=== PATIENT | male | born 1950 | race Caucasian/White ===

== ENCOUNTER → 2017-11-11 | Outpatient (CLI) | payer OTHER ==
[~2017-11-11] MED LIST: AMLO10 PO; ASPI81CH PO; ATOR40TA PO; CLOP75 PO; Coumadin4 MG PO; GABA600 PO; GLIP5ER PO; HYDR1TAB94 PO; INSDET100; LISI20 PO; METF850 PO; MUPI1NAS; OXYC1TAB11 PO; TRAZ50 PO; Z PACK
== END ==
LOC: LAB SRC 14:55 → LAB SHORT 14:55
DX: G89.4 Chronic pain syndrome (principal); Z79.899 Other long term (current) drug therapy
CPT/HCPCS: G0480

== ENCOUNTER 2018-08-20 10:45 | Emergency (ER) | payer OTHER ==
[~2018-08-20] VITALS: Ht 185.4 cm; Wt 111.1 kg
[2018-08-20 11:28] LABS: BASOPHILS ABSOLUTE AUTO 0.04 K/mm3 (0.00-0.23); BASOPHILS PERCENT AUTO 0 % (0-2); EOSINOPHILS ABSOLUTE AUTO 0.13 K/mm3 (0.00-0.68); EOSINOPHILS PERCENT AUTO 1 % (0-6); Hematocrit 44.7 % (37.0-53.0); Hemoglobin 14.9 g/dL (13.5-17.5); IMMATURE GRAN ABSOLUTE AUTO 0.04 K/mm3 (0.00-0.10); IMMATURE GRAN PERCENT AUTO 0 % (0-1); LYMPHOCYTES ABSOLUTE AUTO 1.02 K/mm3 (0.84-5.20); LYMPHOCYTES PERCENT AUTO 11 % (21-46); MONOCYTES ABSOLUTE AUTO 0.66 K/mm3 (0.16-1.47); MONOCYTES PERCENT AUTO 7 % (4-13); Mean Corpuscular HGB 31.8 pg (26.0-34.0); Mean Corpuscular HGB Conc 33.3 g/dL (31.5-36.5); Mean Corpuscular Volume 95 fL (80-100); NEUTROPHILS ABSOLUTE AUTO 7.32 K/mm3 (1.96-9.15); NEUTROPHILS PERCENT AUTO 80 % (41-73); Platelet Count 59 K/mm3 (150-400); RDW Coefficient Variation 12.1 % (11.7-14.2); RDW Standard Deviation 42.1 fL (35.1-46.3); Red Blood Cell Count 4.69 M/mm3 (4.30-5.90); White Blood Cell Count 9.21 K/mm3 (4.00-11.30)
[2018-08-20 11:48] LABS: Alanine Aminotransfer (ALT/SGP 37 U/L (12-78); Albumin, Blood 3.5 g/dL (3.4-5.0); Albumin/Globulin Ratio 1.1 (0.8-1.8); Alk Phos 65 U/L (50-136); Anion Gap 7 mmol/L (6-16); Aspartate Aminotrans (AST/SGOT 24 U/L (12-37); Bilirubin, Total 0.6 mg/dL (0.1-1.0); Blood Urea Nitrogen 18 mg/dL (8-24); Bun/Creatinine Ratio 22.8 (12.0-20.0); CO2, Blood 26 mmol/L (21-32); Calcium, Blood 8.7 mg/dL (8.5-10.1); Chloride, Blood 106 mmol/L (98-108); Creatinine, Blood 0.79 mg/dL (0.60-1.20); Globulin, Blood 3.3 g/dL (2.2-4.0); Glomerular Filtration Rate >60 (60-); Glucose, Blood 288 mg/dL (70-99); Potassium, Blood 4.3 mmol/L (3.5-5.5); Sodium, Blood 139 mmol/L (136-145); Total Protein, Blood 6.8 g/dL (6.4-8.2); Troponin I 0.022 ng/mL (0.000-0.040)
== END 2018-08-20 11:43 | disposition left against medical advice (07) ==
LOC: ER 10:45
PROVIDERS: Emergency Medicine
DX: R07.9 Chest pain, unspecified (principal); E11.40 Type 2 diabetes mellitus with diabetic neuropathy, unspecified; I10 Essential (primary) hypertension; E78.5 Hyperlipidemia, unspecified; Z79.899 Other long term (current) drug therapy; Z79.84 Long term (current) use of oral hypoglycemic drugs; Z79.82 Long term (current) use of aspirin; Z87.891 Personal history of nicotine dependence
CPT/HCPCS: 71046; 80053; 84484; 85025; 93005; 93010; 99285-25

== ENCOUNTER 2019-02-01 09:45 | Inpatient (IN) | payer OTHER ==
[~2019-02-01] VITALS: Ht 185.4 cm; Wt 111.6 kg
[~2019-02-01 09:45] MED LIST changes: -ASPI81CH PO; +Aspirin EC81 MG PO; -GLIP5ER PO; -LISI20 PO; -METF850 PO
[2019-02-01 10:06] LABS: BASOPHILS ABSOLUTE AUTO 0.03 K/mm3 (0.00-0.23); BASOPHILS PERCENT AUTO 0 % (0-2); EOSINOPHILS ABSOLUTE AUTO 0.02 K/mm3 (0.00-0.68); EOSINOPHILS PERCENT AUTO 0 % (0-6); Hematocrit 42.4 % (37.0-53.0); Hemoglobin 14.7 g/dL (13.5-17.5); IMMATURE GRAN ABSOLUTE AUTO 0.11 K/mm3 (0.00-0.10); IMMATURE GRAN PERCENT AUTO 1 % (0-1); LYMPHOCYTES ABSOLUTE AUTO 2.15 K/mm3 (0.84-5.20); LYMPHOCYTES PERCENT AUTO 10 % (21-46); MONOCYTES ABSOLUTE AUTO 1.51 K/mm3 (0.16-1.47); MONOCYTES PERCENT AUTO 7 % (4-13); Mean Corpuscular HGB 32.9 pg (26.0-34.0); Mean Corpuscular HGB Conc 34.7 g/dL (31.5-36.5); Mean Corpuscular Volume 95 fL (80-100); NEUTROPHILS ABSOLUTE AUTO 18.45 K/mm3 (1.96-9.15); NEUTROPHILS PERCENT AUTO 83 % (41-73); RDW Coefficient Variation 12.1 % (11.7-14.2); RDW Standard Deviation 42.4 fL (35.1-46.3); Red Blood Cell Count 4.47 M/mm3 (4.30-5.90); White Blood Cell Count 22.27 K/mm3 (4.00-11.30)
[2019-02-01 10:12] LABS: Mean Platelet Volume 14.2 fL (9.1-12.4); Platelet Count 50 K/mm3 (150-400)
[2019-02-01] MEDS ORDERED: ONE DAILY FOR1 EAC1 PO (10:12)
[2019-02-01 10:23] LABS: International Normalized Ratio 1.01; Prothrombin Time Results 10.7 Sec (9.7-11.5)
[2019-02-01 10:25] LABS: Alanine Aminotransfer (ALT/SGP 62 U/L (12-78); Albumin, Blood 3.1 g/dL (3.4-5.0); Albumin/Globulin Ratio 0.7 (0.8-1.8); Alk Phos 89 U/L (50-136); Anion Gap 8 mmol/L (6-16); Aspartate Aminotrans (AST/SGOT 56 U/L (12-37); Bilirubin, Total 0.7 mg/dL (0.1-1.0); Blood Urea Nitrogen 55 mg/dL (8-24); Bun/Creatinine Ratio 45.5 (12.0-20.0); CO2, Blood 28 mmol/L (21-32); Calcium, Blood 9.1 mg/dL (8.5-10.1); Chloride, Blood 103 mmol/L (98-108); Creatinine, Blood 1.21 mg/dL (0.60-1.20); Globulin, Blood 4.2 g/dL (2.2-4.0); Glomerular Filtration Rate >60 (60-); Glucose, Blood 277 mg/dL (70-99); Potassium, Blood 4.1 mmol/L (3.5-5.5); Sodium, Blood 139 mmol/L (136-145); Total Protein, Blood 7.3 g/dL (6.4-8.2)
[2019-02-01] MEDS ORDERED: GLIP5ER PO (12:03)
[2019-02-01] MEDS ORDERED: METF500 PO (12:09)
[2019-02-01] MEDS ORDERED: HYDCHL25 PO (12:10)
[2019-02-01] MEDS ORDERED: LISI20 PO (12:10)
[2019-02-01] MEDS ORDERED: Norco 10-325 T1 EACH PO (14:30)
[2019-02-01] MEDS ORDERED: MELO7.5 PO (14:30)
--- NOTE | 2019-02-01 17:00 | NUR ---
Initial Visit: Pt admitted with CVA. He is tracking with his eyes, it appears. Pt has just arrived to 3rd floor. [facility] center here to run tests. Confirmed code status with . Pt has an advance directive that states that he would not want any life sustaining treatments, and states so very plainly. , Argenis, states that she is wanting him to remain a full code at this time. Also inquired about the pt's signature page on his document, as it is not included with his paperwork. She states that she has no idea about this and the document is likely in storage. She is spending the night here at the hospital with the pt. Will remain availalble. Advance directed printed and placed in chart.
--- NOTE | 2019-02-01 19:22 | NUR ---
SHIFT SUMMARY: PATIENT ADMIT FROM ED THIS SHIFT. POSSIBLE ACUTE CVA; L SIDE DEFICITS; PT ON BEDREST; NEURO CHECKS Q4 HOURS FOR 24 HOURS. LUNGS COARSE; POSSIBLE PNA; IV ABX. PT NPO UNTIL SWALLOW EVAL. PT & OT EVAL & TREAT ORDERED. TELE IN PLACE; SR @ 83 PER NON MORSE INTERCEPT TECHNICIAN. WCTM.
[2019-02-01 19:49] LABS: Source, Urine Clean Catch
[2019-02-01 19:57] LABS: Bilirubin, Urine Neg (Neg); Blood, Urine 1+ (Neg); Glucose Qualitative, Urine Neg (Neg); Ketones, Urine Neg (Neg); Leukocyte Esterase, Urine Neg (Neg); Nitrite, Urine Neg (Neg); Protein, Urine 3+ (Neg); Urobilinogen, Urine NORM (Normal)
[2019-02-01 20:01] LABS: Appearance, Urine Clear (Clear); Color, Urine Yellow (P-Yellow)
[2019-02-01 20:02] LABS: Amorphous Light (0-Heavy); Bacteria Few /hpf; Red Blood Cells, Urine 0-2 /hpf (0-2); Squamous Epithelial Cells Rare /hpf (Few); White Blood Cells, Urine 0-2 /hpf (0-5)
[2019-02-01 21:14] LABS: Adenovirus Not Detected (NOT DETECT); Bordetella pertussis Not Detected (NOT DETECT); Chlamydophila pneumoniae Not Detected (NOT DETECT); Coronavirus 229E Not Detected (NOT DETECT); Coronavirus HKU1 Not Detected (NOT DETECT); Coronavirus NL63 Not Detected (NOT DETECT); Coronavirus OC43 Not Detected (NOT DETECT); Human Metapneumovirus Not Detected (NOT DETECT); Human Rhinovirus/Enterovirus Not Detected (NOT DETECT); Influenza A Not Detected (NOT DETECT); Influenza A/2009-H1 Not Detected (NOT DETECT); Influenza A/H1 Not Detected (NOT DETECT); Influenza A/H3 Not Detected (NOT DETECT); Influenza B Not Detected (NOT DETECT); Mycoplasma pneumoniae Not Detected (NOT DETECT); Parainfluenza Virus 1 Not Detected (NOT DETECT); Parainfluenza Virus 2 Not Detected (NOT DETECT); Parainfluenza Virus 3 Not Detected (NOT DETECT); Parainfluenza Virus 4 Not Detected (NOT DETECT); Respiratory Syncytial Virus Not Detected (NOT DETECT)
[2019-02-02 05:24] LABS: BASOPHILS ABSOLUTE AUTO 0.02 K/mm3 (0.00-0.23); BASOPHILS PERCENT AUTO 0 % (0-2); EOSINOPHILS ABSOLUTE AUTO 0.02 K/mm3 (0.00-0.68); EOSINOPHILS PERCENT AUTO 0 % (0-6); Hematocrit 44.3 % (37.0-53.0); Hemoglobin 14.9 g/dL (13.5-17.5); IMMATURE GRAN ABSOLUTE AUTO 0.06 K/mm3 (0.00-0.10); IMMATURE GRAN PERCENT AUTO 0 % (0-1); LYMPHOCYTES ABSOLUTE AUTO 1.88 K/mm3 (0.84-5.20); LYMPHOCYTES PERCENT AUTO 10 % (21-46); MONOCYTES ABSOLUTE AUTO 1.48 K/mm3 (0.16-1.47); MONOCYTES PERCENT AUTO 8 % (4-13); Mean Corpuscular HGB 32.2 pg (26.0-34.0); Mean Corpuscular HGB Conc 33.6 g/dL (31.5-36.5); Mean Corpuscular Volume 96 fL (80-100); NEUTROPHILS ABSOLUTE AUTO 15.54 K/mm3 (1.96-9.15); NEUTROPHILS PERCENT AUTO 82 % (41-73); Platelet Count 56 K/mm3 (150-400); RDW Standard Deviation 42.1 fL (35.1-46.3); Red Blood Cell Count 4.63 M/mm3 (4.30-5.90)
[2019-02-02 05:26] LABS: Mean Platelet Volume 14.1 fL (9.1-12.4)
[2019-02-02 05:40] LABS: Alanine Aminotransfer (ALT/SGP 56 U/L (12-78); Albumin/Globulin Ratio 0.7 (0.8-1.8); Alk Phos 92 U/L (50-136); Anion Gap 8 mmol/L (6-16); Aspartate Aminotrans (AST/SGOT 38 U/L (12-37); Bilirubin, Total 0.7 mg/dL (0.1-1.0); Blood Urea Nitrogen 49 mg/dL (8-24); Bun/Creatinine Ratio 47.6 (12.0-20.0); CHOL/HDL RATIO 8.3; CO2, Blood 29 mmol/L (21-32); Calcium, Blood 9.2 mg/dL (8.5-10.1); Chloride, Blood 106 mmol/L (98-108); Cholesterol 257 mg/dL (50-200); Creatinine, Blood 1.03 mg/dL (0.60-1.20); Globulin, Blood 4.4 g/dL (2.2-4.0); Glomerular Filtration Rate >60 (60-); Glucose, Blood 261 mg/dL (70-99); HDL Cholesterol 31 mg/dL (>39); LDL/HDL RATIO Unable to Calculate; Low Density Lipoprotein Chol Unable to Calculate mg/dL (0-110); Magnesium, Blood 2.5 mg/dL (1.6-2.4); Phosphorus, Blood 3.9 mg/dL (2.5-4.9); Sodium, Blood 143 mmol/L (136-145); Total Protein, Blood 7.4 g/dL (6.4-8.2); Triglycerides 403 mg/dL (30-160); Very Low Density Lipoprot Chol Unable to Calculate mg/dL (6-32)
--- NOTE | 2019-02-02 08:43 | NUR ---
SHIFT SUMMARY PATIENT CONTINUES TO BE NONVERBAL THROUGHOUT THE NIGHT. HOWEVER, PATIENT WOULD NOD HIS HEAD "YES" IN RESPONSE TO QUESTIONS. PATIENT APPEARED TO HAVE A SLIGHT INCREASE IN WEAKNESS ON THE LET SIDE THROUGHOUT THE NIGHT WELL SOME OCCATIONAL LEFT SIDED FACIAL DROOPING. THIS MORNING PATIENT DID MUMBLE, "OKAY," IN RESPONSE TO STAFF. PATIENT LIKES TO SLEEP ON HIS RIGHT SIDE SO PATIENT TURNED FROM HIS RIGHT SIDE TO HIS BACK FREQUENTLY THROUGHOUT THE NIGHT. PATIENT'S AT THE BEDSIDE HELPING TO PROVIDE CARE. VITAL SIGNS CHARTED. REPORT GIVEN TO ONCOMING RN.
--- NOTE | 2019-02-02 19:23 | NUR ---
SHIFT SUMMARY: MRI THIS SHIFT; ACUTE CVA FOUND; NEUROLOGY CONSULT (DR LEONARDO) - DR TO SEE PT LATER TODAY. PT ALERT; ORIENTED TO SELF & FAMILY; COOPERATIVE WITH CARE. OCC CONFUSION; PT PULLED IV THIS SHIFT; NEW IV STARTED - PT TOLERATED WELL. ASPIRATION PRECAUTIONS R/T CVA; STRICT NPO. REHYDRATION & IV ABX CONTINUING. REPORT GIVEN TO ONCOMING RN.
--- NOTE | 2019-02-03 04:01 | NUR ---
SHIFT SUMMARY PT HAS BEEN ALERT AND ORIENTED THIS SHIFT, ONLY CONFUSED REGARDING THE SPECIFIC DAY OF THIS MONTH. PT HAS ONLY REQUESTED WATER TO DRINK AT THIS TIME, BUT DUE TO THE FACT THAT HE IS A STRICT NPO, ONLY ORAL CARE HAS BEEN PROVIDED. PT IS ABLE TO TURN AND REPOSITION HIMSELF. PT'S ALLAN AREA AND TESTICLES ARE RED. CALAZIME WAS APPLIED. PT DID ATTEMPT TO GET OUT OF BED TONIGHT, BUT BED ALARM SOUNDED AND STAFF WERE ABLE TO REPOSITION HIM. NO COMPLAINTS OF PAIN. VSS. WILL CONTINUE TO MONITOR.
[2019-02-03 05:37] LABS: BASOPHILS ABSOLUTE AUTO 0.03 K/mm3 (0.00-0.23); BASOPHILS PERCENT AUTO 0 % (0-2); EOSINOPHILS ABSOLUTE AUTO 0.07 K/mm3 (0.00-0.68); EOSINOPHILS PERCENT AUTO 1 % (0-6); Hemoglobin 13.6 g/dL (13.5-17.5); IMMATURE GRAN ABSOLUTE AUTO 0.07 K/mm3 (0.00-0.10); IMMATURE GRAN PERCENT AUTO 1 % (0-1); LYMPHOCYTES ABSOLUTE AUTO 2.87 K/mm3 (0.84-5.20); LYMPHOCYTES PERCENT AUTO 23 % (21-46); MONOCYTES ABSOLUTE AUTO 1.13 K/mm3 (0.16-1.47); MONOCYTES PERCENT AUTO 9 % (4-13); Mean Corpuscular HGB 32.4 pg (26.0-34.0); Mean Corpuscular HGB Conc 33.2 g/dL (31.5-36.5); Mean Corpuscular Volume 98 fL (80-100); NEUTROPHILS ABSOLUTE AUTO 8.46 K/mm3 (1.96-9.15); NEUTROPHILS PERCENT AUTO 67 % (41-73); Platelet Count 77 K/mm3 (150-400); RDW Standard Deviation 43.2 fL (35.1-46.3); White Blood Cell Count 12.63 K/mm3 (4.00-11.30)
[2019-02-03 05:48] LABS: Mean Platelet Volume 13.7 fL (9.1-12.4)
[2019-02-03 06:00] LABS: Albumin, Blood 2.6 g/dL (3.4-5.0); Anion Gap 7 mmol/L (6-16); Blood Urea Nitrogen 45 mg/dL (8-24); Bun/Creatinine Ratio 37.5 (12.0-20.0); CO2, Blood 29 mmol/L (21-32); CPK Creatine Kinase 101 U/L (39-308); Calcium, Blood 8.5 mg/dL (8.5-10.1); Chloride, Blood 111 mmol/L (98-108); Glomerular Filtration Rate >60 (60-); Glucose, Blood 189 mg/dL (70-99); Phosphorus, Blood 3.7 mg/dL (2.5-4.9); Potassium, Blood 3.8 mmol/L (3.5-5.5); Sodium, Blood 147 mmol/L (136-145)
--- NOTE | 2019-02-03 17:15 | NUR ---
Pal Spiritual care intial note: Met with Waldemar and his , Argenis, at bedside. Argenis tells me she has not left the hospital since admission. She also state that Waldemar is recovering quicker than she thought he would. Both tell me they are pleased with POC and progress. I provide theraputic listening to life review, affirmed obvious love and offered gentle director of counseling towards self-care. Rea appeared appreciaitve of emotional support/director of counseling. I will remain available.
--- NOTE | 2019-02-03 18:17 | NUR ---
SHIFT SUMMARY PATIENT HAS WORKED WITH PT/OT/ST. ADVANCED DIET, TOLERATING THIS WELL. CONTINUES TO HAVE GLASSED OVER EYES AND MINIMAL FACIAL EXPRESSION OR CONVERSATION. LEFT SIDED DROOP NOTED. LEFT SIDED WEAKNESS NOTED.
[2019-02-04 05:25] LABS: BASOPHILS ABSOLUTE AUTO 0.02 K/mm3 (0.00-0.23); BASOPHILS PERCENT AUTO 0 % (0-2); EOSINOPHILS ABSOLUTE AUTO 0.14 K/mm3 (0.00-0.68); EOSINOPHILS PERCENT AUTO 1 % (0-6); Hemoglobin 13.4 g/dL (13.5-17.5); IMMATURE GRAN PERCENT AUTO 1 % (0-1); LYMPHOCYTES ABSOLUTE AUTO 2.65 K/mm3 (0.84-5.20); LYMPHOCYTES PERCENT AUTO 21 % (21-46); MONOCYTES ABSOLUTE AUTO 1.13 K/mm3 (0.16-1.47); MONOCYTES PERCENT AUTO 9 % (4-13); Mean Corpuscular HGB 31.8 pg (26.0-34.0); Mean Corpuscular HGB Conc 32.7 g/dL (31.5-36.5); Mean Corpuscular Volume 97 fL (80-100); NEUTROPHILS ABSOLUTE AUTO 8.53 K/mm3 (1.96-9.15); NEUTROPHILS PERCENT AUTO 68 % (41-73); Platelet Count 85 K/mm3 (150-400); RDW Coefficient Variation 11.9 % (11.7-14.2); RDW Standard Deviation 42.5 fL (35.1-46.3); Red Blood Cell Count 4.22 M/mm3 (4.30-5.90); White Blood Cell Count 12.57 K/mm3 (4.00-11.30)
[2019-02-04 05:40] LABS: Albumin, Blood 2.7 g/dL (3.4-5.0); Anion Gap 7 mmol/L (6-16); Blood Urea Nitrogen 35 mg/dL (8-24); CO2, Blood 27 mmol/L (21-32); Calcium, Blood 8.3 mg/dL (8.5-10.1); Chloride, Blood 110 mmol/L (98-108); Creatinine, Blood 0.97 mg/dL (0.60-1.20); Glomerular Filtration Rate >60 (60-); Glucose, Blood 187 mg/dL (70-99); Phosphorus, Blood 2.9 mg/dL (2.5-4.9); Potassium, Blood 3.8 mmol/L (3.5-5.5); Sodium, Blood 144 mmol/L (136-145)
[2019-02-04 05:42] LABS: Mean Platelet Volume 13.4 fL (9.1-12.4)
--- NOTE | 2019-02-04 06:39 | NUR ---
SHIFT SUMMARY PT IS A 68 Y/O MALE, ADMITTED WITH ACUTE CVA. HE IS A&O X 2, AND A 2PA UP TO THE BS, THOUGH THE PT'S IS ABLE TO SIT UP ON THE SIDE OF THE BED WITHOUT ASSISTANCE. SOME L-SIDE DEFICITS R/T THE CVA, WITH A L-SIDE FACIAL DROOP. NO COMPLAINTS OF PAIN, NAUSEA OR SOB. PT'S BP WAS ELEVATED DURING AM VITALS, 177/73. ALL OTHER VITALS STABLE. PT SLEPT WELL DURING THE NIGHT. NO OTHER ACUTE CHANGES IN PT CONDITION NOTED. WILL CONTINUE TO MONITOR AND TREAT PER EMAR UNTIL HAND OFF TO DAY SHIFT RN.
--- NOTE | 2019-02-04 17:57 | NUR ---
Clinical Visit: Pt is alert, appears oriented. He is sitting up eating dinner. He has slight left droop, but appears to be swallowing without difficulty. Discussed with , Argenis. Reviewed POLST form. THere is a friend of hers at bedside and friend requests POLST form documents. Argenis asks if any doctor can sign this - advised that it should be a doctor in charge of his care; either here at the hospital or a PCP. Reviewed sections A,B,C. Instructed on purpose of document, place in the home to place it or wherever pt is. Instructed that if the document is signed, it should follow him to the rehab. The plan is to discharge to [facility] on Friday, per pt. He is talking in limited sentences. He is feeding himself with a spoon. Family states he is doing well. is trying to figure out how to stay in [place] with him. She states that if she doesn't, he will believe that she abandoned him. No other concerns at this time. Will remain available.
--- NOTE | 2019-02-04 18:58 | NUR ---
Assisted with attends change. Pt reports that his hips hurt when repositioning. He winces during care, but displays some bed mobility. He is able to reach across his body to the rail on the other side and pull on both sides. He is still very weak. He is talking and communicating at this time. Will remain available.
[2019-02-05 05:15] LABS: BASOPHILS ABSOLUTE AUTO 0.01 K/mm3 (0.00-0.23); BASOPHILS PERCENT AUTO 0 % (0-2); EOSINOPHILS PERCENT AUTO 1 % (0-6); Hematocrit 38.1 % (37.0-53.0); Hemoglobin 12.8 g/dL (13.5-17.5); IMMATURE GRAN ABSOLUTE AUTO 0.12 K/mm3 (0.00-0.10); IMMATURE GRAN PERCENT AUTO 1 % (0-1); LYMPHOCYTES ABSOLUTE AUTO 2.31 K/mm3 (0.84-5.20); LYMPHOCYTES PERCENT AUTO 20 % (21-46); MONOCYTES ABSOLUTE AUTO 1.07 K/mm3 (0.16-1.47); MONOCYTES PERCENT AUTO 10 % (4-13); Mean Corpuscular HGB 31.8 pg (26.0-34.0); Mean Corpuscular HGB Conc 33.6 g/dL (31.5-36.5); Mean Corpuscular Volume 95 fL (80-100); NEUTROPHILS ABSOLUTE AUTO 7.69 K/mm3 (1.96-9.15); NEUTROPHILS PERCENT AUTO 68 % (41-73); Platelet Count 90 K/mm3 (150-400); RDW Coefficient Variation 11.7 % (11.7-14.2); RDW Standard Deviation 40.5 fL (35.1-46.3); Red Blood Cell Count 4.03 M/mm3 (4.30-5.90)
[2019-02-05 05:32] LABS: Albumin, Blood 2.7 g/dL (3.4-5.0); Anion Gap 7 mmol/L (6-16); Blood Urea Nitrogen 25 mg/dL (8-24); Bun/Creatinine Ratio 26.7 (12.0-20.0); CO2, Blood 27 mmol/L (21-32); Calcium, Blood 8.4 mg/dL (8.5-10.1); Chloride, Blood 108 mmol/L (98-108); Creatinine, Blood 0.94 mg/dL (0.60-1.20); Glomerular Filtration Rate >60 (60-); Glucose, Blood 212 mg/dL (70-99); Phosphorus, Blood 3.2 mg/dL (2.5-4.9); Sodium, Blood 142 mmol/L (136-145)
[2019-02-05 05:33] LABS: Mean Platelet Volume 13.9 fL (9.1-12.4)
--- NOTE | 2019-02-05 06:15 | NUR ---
SHIFT SUMMARY: 68 Y/O OBESE MALE RESTED COMFORTABLY ALL SHIFT, THOUGHT PROCESS DISORGANIZED WITH INABILITY TO EXPRESS THOUGHTS WITHOUT CUES FROM STAFF AND WHOM SPENT NIGHT AT SIDE, LEFT SIDED ARM PUSH AND LEFT LEG PUSH AND PULLS WEAKER THAN RIGHT, WEAK COUGH NOTED, ABLE SWALLOW WATER WITHOUT ISSUE, DENIES PAIN OR NAUSEA, BED ALARM APPLIED, BED LOW POSITION, CALL LIGHT AT SIDE.
--- NOTE | 2019-02-06 04:29 | NUR ---
SHIFT SUMMARY: 68 Y/O OBESE MALE RESTED COMFORTABLY ALL SHIFT, ABLE TO FOLLOW ALL SIMPLE VERBAL COMMANDS, DIFFICULTY WITH ORGANIZING THOUGHTS DESCRIBE THOUGHTS IN A SENTENCE AT TIMES, FREQUENTLY ANWSERS ALL QUESTIONS WITH SIMPLE YES OR NO ANSWERS (NO MATTER HOW THIS NURSE WORDS QUESTION), DENIES PAIN OR NAUSEA, LEFT SIDE WEAKER THAN RIGHT, INCONTINENT BOWEL X 1 THIS SHIFT, SPOUSE SPENT NIGHT AT HOME (PATIENT WAS ADVISED BY NURSING STAFF OF THIS FACT), BED ALARM APPLIED, BED LOW POSITION, CALL LIGHT AT SIDE.
[2019-02-06 15:33] LABS: Stool Occult Blood Guaiac 1 Neg (Neg)
--- NOTE | 2019-02-06 17:58 | NUR ---
PT AOX3 WITH CONFUSION. PT IS COOPERATIVE OF ALL CARE. PT TRYS VERY HARD TO WORK WITH INSTRUCTION ON GETTING UP A TWO PERSON ASSIST TO COMMODE. MOVEMENT IS VERY SLOW AND GAIT BELT IS NEEDED FOR SUPPORT. PT FOLLOWS ALL QUES AND DOES HIS BEST. PT HAS TO BE ENCOURAGED TO OPEN HIS EYES, BUT ONCE THEY ARE OPEN HE SEEMS TO KEEP THEM OPEN. HAS BEEN PRESENT IN ROOM AND WORKS TO KEEP HIM BUSY TALKING AND CONVERSING. PT WORKED WITH PT AND HAD HIM UP WITH GAIT BELT TO WALK LENTGH OF BED. PT IS INCONTINENT AND NEEDS TO BE TURNED EVERY COUPLE HOURS. WILL CONTINUE TO MONITOR.
--- NOTE | 2019-02-07 04:39 | NUR ---
SHIFT SUMMARY: 68 Y/O OBESE MALE RESTED COMFORTABLY ALL SHIFT, DENIES PAIN OR NAUSEA, PTS THOUGHT PROCESS STILL DISORGANIZED AND REQUIRES CUES FROM THIS NURSE ABOUT TOPIC AT HAND, BILATERAL DEFICITS NOTED WITH LEFT SIDED GREATER THAN RIGHT, INCONTINENT URINE WITH ATTENDS DIAPERS APPLIED, BED ALARM APPLIED, BED LOW POSITION, CALL LIGHT AT SIDE. SPENT NIGHT AT HOME.
--- NOTE | 2019-02-07 18:30 | NUR ---
SHIFT SUMMARY PT WORKED WITH THERAPY TODAY, HE IS A 2 PERSON MODERATE ASSIST FOR TRANSFERS. PT HAS BEEN INCONTINENT OF BOWEL AND BLADDER AT TIMES THIS SHIFT. FAMILY HAS BEEN AT THE BEDSIDE FOR SUPPORT. VSS. WILL MONITOR UNTIL REPORT TO ONCOMING RN.
--- NOTE | 2019-02-08 04:02 | NUR ---
Family member said to not wake pt up for vitals till 5am due to pt feeling to weak for physical therapy. Pt has been repositioned to right side as at the same time i checked his CBG before bed.
--- NOTE | 2019-02-08 08:00 | NUR ---
SUMMARY PT AT BEDSIDE THIS SHIFT. SUPPORTIVE. ASKING PT BE ALLOWED TO SLEEP MUCH POSSIBLE HAS NOT SLEPT MUCH AND SHE FELT HE WOULD BE MORE ABLE TO PARTICIPATE IN PHYSICAL THERAPY IF HE WAS NOT SO TIRED.ADVISED WE WOULD DISTURB PT SLEEP LITTLE POSSIBLE BUT STILL ALLOWING FOR QUALITY AND SAFETY OF CARE. VERB PLEASED WITH AMNT OF SLEEP PT RECEIVED LAST NIGHT. VERB SHE FEELS PT IS SIGNIFICANTLY IMPROVED FROM ADMI.SPEECH WAS EASILY UNDERSTOOD BY ME AND PT ABLE TO ASSIST WITH REPOSITIONING IN BED INCLUDING REASONING HIMSELF TO MOVE HIPS FURTHER BACK ON BED WHEN ANTICIPATING GETTING TOO CLOSE TO SIDE RAIL. PT REQUESTED MY ASSISTANCE WTIH URINAL APPROPRIATELY WELL.
--- NOTE | 2019-02-08 18:43 | NUR ---
SHIFT SUMMARY PATIENT IS ANTICIPATING PLACEMENT IN A REHAB FACILITY TOMORROW. WAS HOPING FOR TODAY. HIS SPEECH IS SLIGHTLY SLURRED, HE HAS A SLIGHT L SIDE FACIAL DROOP. L SIDE OF BODY IS MORE UNCOORDINATED THAN THE R BUT STRENGTH SEEMED TO BE EQUAL. PUPILS EQUAL. PT CAN PIVOT/TAKE A COUPLE STEPS WITH A FWW AND 1 ASSIST. PT SAT UP IN WHEELCHAIR AND CHAIR FOR SOME OF DAY. IS VERY SUPPORTIVE AND WHEELED HIM AROUND HOSPITAL. PT USES CALL BUTTON APPROPRIATELY TO USE URINAL AND TO BE REPOSITIONED WHEN IN BED. PT SEEMS WITHDRAWN. PT HAD A LARGE LOOSE/SOFT BM.
--- NOTE | 2019-02-09 04:29 | NUR ---
SHIFT SUMMARY: NO ACUTE CHANGES OVER NIGHT. PT STILL HAS SLIGHT LEFT FACIAL DROOP WITH SLURRED SPEECH. PT ABLE TO EXPRESS WANTS/NEEDS AND IS EASILY UNDERSTOOD. GENERALIZED WEAKNESS T/O WITH LEFT SIDE BEING SLIGHTLY WEAKER. A&O X4. TELE SHOWS SINUS BRADYCARDIA WITH BUNDLE BRANCH BLOCK. PT INCONTINENT OF URINE AND STOOL T/O SHIFT. VOIDING AND 1 BM/SMEAR. TWO MODERATE ASSIST FOR REPOSITIONING. AT BEDSIDE AND IS ACTIVE IN CARE. ORDER FOR PT TO BE UP IN CHAIR FOR MEALS. 1 ASSIST TO STAND/PIVOT. PLAN FOR POSSIBLE DISCHARGE TO SNF TODAY.
--- NOTE | 2019-02-09 13:14 | NUR ---
Clinical Visit; Pt is resting at time of visit and snoring softly. Argenis, , is at bedside and appears tired. She states that she is exhausted from being here. She feels like if she leaves for a little while to go home that the pt would get scared and feel abandoned. Encouraged her to go home and rest for at least a few hours. She has been spending every night with the pt. She is also scared that the pt will be discharged and sent to rehab without her knowing. Checked with discharge manager of program, Martha. She is working on getting him a bed and will know by 3pm if he will be able to go today. Updated Argenis, encouraged her again to take care of herself. She thinks she will go home to rest and relax. Provided Martha's card to her and gave Martha the 's cell phone number.
--- NOTE | 2019-02-09 17:19 | NUR ---
SHIFT SUMMARY NO ACUTE CHANGES. PATIENT DENIES PAIN WHEN ASKED BUT IS STIFF WITH MOVEMENT. DENIES NAUSEA AND SHORTNESS OF BREATH. PATIENT UP 1-2 ASSIST W/GAITBELT AND FWW TO BSC OR CHAIR. PATIENT UP FOR MEALS. PATIENT WORKED WITH PT AND OT TODAY. AT BEDSIDE THIS MORNING. PATIENT TO DISCHARGE TO IRU IN [place] TOMORROW. CALL LIGHT IN REACH.
--- NOTE | 2019-02-10 04:22 | NUR ---
PT able to communicate and has been using urinal with assist. His is at bedside and supportive. He tells her this morning "I love you honey". On room air, denies pain, VSS. Plans to dc today to stroke rehab unit in [place]. Dc order on chart. Able to use trapeze and assist with bed repositioning. Obesity limits movement. Hob up 30%, able to feed self.
[2019-02-10] MEDS ORDERED: Norvasc10 MG PO (08:22)
[2019-02-10] MEDS ORDERED: ATOR10 (08:24)
[2019-02-10] MEDS ORDERED: CLOP75 PO (08:24)
[2019-02-10] MEDS ORDERED: HYDCHL25 PO (08:26)
[2019-02-10] MEDS ORDERED: INSULANPEN SC (08:27)
[2019-02-10] MEDS ORDERED: Humalog100 UNIT/1 (08:29)
--- NOTE | 2019-02-10 09:08 | NUR ---
DISCHARGE PATIENT DISCHARGED TO [facility] IN [place]. AT BEDSIDE. IV REMOVED. REPORT CALLED TO [facility] RECEIVING NURSE. PATIENT TRANSPORTED VIA [facility].
== END 2019-02-10 08:55 | DRG 64 ==
LOC: ER 09:45 → MEDS 09:46 → ER 14:44 → MEDS 14:45
PROVIDERS: Emergency Medicine; Internal Medicine; ADMIT Internal Medicine
DX: I63.9 Cerebral infarction, unspecified (principal); J69.0 Pneumonitis due to inhalation of food and vomit; G92 Toxic encephalopathy; N17.9 Acute kidney failure, unspecified; G81.94 Hemiplegia, unspecified affecting left nondominant side; E11.51 Type 2 diabetes mellitus with diabetic peripheral angiopathy without gangrene; I10 Essential (primary) hypertension; I71.4 Abdominal aortic aneurysm, without rupture; Z95.5 Presence of coronary angioplasty implant and graft; F17.210 Nicotine dependence, cigarettes, uncomplicated; W06.XXXA Fall from bed, initial encounter; Y92.003 Bedroom of unspecified non-institutional (private) residence as the place of occurrence of the external cause; Z86.718 Personal history of other venous thrombosis and embolism; I35.0 Nonrheumatic aortic (valve) stenosis; D69.6 Thrombocytopenia, unspecified; Z79.82 Long term (current) use of aspirin; Z79.84 Long term (current) use of oral hypoglycemic drugs; E78.5 Hyperlipidemia, unspecified; E86.0 Dehydration; E66.9 Obesity, unspecified; Z79.02 Long term (current) use of antithrombotics/antiplatelets; Z68.31 Body mass index [BMI] 31.0-31.9, adult
CPT/HCPCS: 0099U; 36415; 70450; 70496; 70498; 70551; 71045; 80053; 80061; 80069; 81001; 82270; 82550; 82947; 83036; 83605; 83735; 84100; 84145; 85025; 85610; 85730; 87040; 92507; 92523; 92526; 92610; 93005; 93010; 93306; 94640; 94760; 96365-59; 96367; 96375-59; 97110; 97112; 97116; 97162; 97167; 97530; 97535; 99285-25; J0360; J0456; J0696; J1650; J2405; J2543; J3370; J7030; J7050; Q9967

== ENCOUNTER 2020-08-10 21:53 | Observation (INO) | payer OTHER ==
[~2020-08-10] VITALS: Ht 185.4 cm; Wt 102.7 kg
[~2020-08-10 21:53] MED LIST changes: +ATOR10; +CHLO25B PO; +GLIP5ER PO; +HYDCHL25 PO; +Humalog100 UNIT/1; +IBUP600 PO; +INSULANPEN SC; +INVOKANA100 MG PO; +LISI20 PO; +MELO7.5 PO; +METF500 PO; +Norco 10-325 T1 EACH PO; +Norvasc10 MG PO; +ONE DAILY FOR1 EAC1 PO
[2020-08-10] MEDS ORDERED: LEVE500 PO (22:30)
[2020-08-10] MEDS ORDERED: PREG75 PO (22:33)
[2020-08-10 22:34] LABS: BASOPHILS ABSOLUTE AUTO 0.03 K/mm3 (0.00-0.23); BASOPHILS PERCENT AUTO 0 % (0-2); EOSINOPHILS ABSOLUTE AUTO 0.27 K/mm3 (0.00-0.68); EOSINOPHILS PERCENT AUTO 3 % (0-6); Hematocrit 43.4 % (37.0-53.0); Hemoglobin 14.2 g/dL (13.5-17.5); IMMATURE GRAN ABSOLUTE AUTO 0.02 K/mm3 (0.00-0.10); IMMATURE GRAN PERCENT AUTO 0 % (0-1); LYMPHOCYTES ABSOLUTE AUTO 2.88 K/mm3 (0.84-5.20); LYMPHOCYTES PERCENT AUTO 34 % (21-46); MONOCYTES ABSOLUTE AUTO 0.65 K/mm3 (0.16-1.47); MONOCYTES PERCENT AUTO 8 % (4-13); Mean Corpuscular HGB 29.8 pg (26.0-34.0); Mean Corpuscular HGB Conc 32.7 g/dL (31.5-36.5); Mean Corpuscular Volume 91 fL (80-100); NEUTROPHILS ABSOLUTE AUTO 4.53 K/mm3 (1.96-9.15); NEUTROPHILS PERCENT AUTO 54 % (41-73); Platelet Count 81 K/mm3 (150-400); RDW Coefficient Variation 12.7 % (11.7-14.2); RDW Standard Deviation 42.1 fL (35.1-46.3); Red Blood Cell Count 4.76 M/mm3 (4.30-5.90); White Blood Cell Count 8.38 K/mm3 (4.00-11.30)
[2020-08-10 22:54] LABS: Alanine Aminotransfer (ALT/SGP 18 U/L (12-78); Albumin, Blood 3.3 g/dL (3.4-5.0); Albumin/Globulin Ratio 0.9 (0.8-1.8); Alk Phos 58 U/L (50-136); Anion Gap 8 mmol/L (6-16); Aspartate Aminotrans (AST/SGOT 11 U/L (12-37); Bilirubin, Total 0.3 mg/dL (0.1-1.0); Blood Urea Nitrogen 22 mg/dL (8-24); Bun/Creatinine Ratio 23.4 (12.0-20.0); CO2, Blood 29 mmol/L (21-32); Calcium, Blood 8.7 mg/dL (8.5-10.1); Chloride, Blood 110 mmol/L (98-108); Creatinine, Blood 0.94 mg/dL (0.60-1.20); Globulin, Blood 3.5 g/dL (2.2-4.0); Glomerular Filtration Rate >60 (60-); Glucose, Blood 164 mg/dL (70-99); Sodium, Blood 147 mmol/L (136-145); Total Protein, Blood 6.8 g/dL (6.4-8.2); Troponin I <0.015 ng/mL (0.000-0.040)
[2020-08-10 22:55] LABS: TOTAL CELLS COUNTED 2
[2020-08-11 02:55] LABS: Source, Urine Clean Catch
[2020-08-11 03:08] LABS: Bilirubin, Urine Neg (Neg); Blood, Urine Neg (Neg); Glucose Qualitative, Urine 4+ (Neg); Ketones, Urine Neg (Neg); Leukocyte Esterase, Urine Neg (Neg); Nitrite, Urine Neg (Neg); Protein, Urine 2+ (Neg); Specific Gravity, Urine 1.025 (1.003-1.022); Urobilinogen, Urine NORM (Normal)
[2020-08-11 03:19] LABS: Appearance, Urine Clear (Clear); Bacteria Not Seen /hpf; Color, Urine Yellow (P-Yellow); Red Blood Cells, Urine Not Seen /hpf (0-2); Squamous Epithelial Cells Not Seen /hpf (Few); White Blood Cells, Urine Not Seen /hpf (0-5)
[2020-08-11 03:48] LABS: BASOPHILS ABSOLUTE AUTO 0.02 K/mm3 (0.00-0.23); BASOPHILS PERCENT AUTO 0 % (0-2); EOSINOPHILS ABSOLUTE AUTO 0.19 K/mm3 (0.00-0.68); EOSINOPHILS PERCENT AUTO 2 % (0-6); Hematocrit 39.3 % (37.0-53.0); Hemoglobin 13.2 g/dL (13.5-17.5); IMMATURE GRAN ABSOLUTE AUTO 0.02 K/mm3 (0.00-0.10); IMMATURE GRAN PERCENT AUTO 0 % (0-1); LYMPHOCYTES ABSOLUTE AUTO 3.05 K/mm3 (0.84-5.20); LYMPHOCYTES PERCENT AUTO 39 % (21-46); MONOCYTES ABSOLUTE AUTO 0.72 K/mm3 (0.16-1.47); MONOCYTES PERCENT AUTO 9 % (4-13); Mean Corpuscular HGB 30.4 pg (26.0-34.0); Mean Corpuscular HGB Conc 33.6 g/dL (31.5-36.5); Mean Corpuscular Volume 91 fL (80-100); NEUTROPHILS ABSOLUTE AUTO 3.77 K/mm3 (1.96-9.15); NEUTROPHILS PERCENT AUTO 48 % (41-73); Platelet Count 75 K/mm3 (150-400); RDW Coefficient Variation 12.7 % (11.7-14.2); Red Blood Cell Count 4.34 M/mm3 (4.30-5.90); White Blood Cell Count 7.77 K/mm3 (4.00-11.30)
[2020-08-11 03:49] LABS: Mean Platelet Volume 13.3 fL (9.1-12.4)
--- NOTE | 2020-08-11 04:12 | NUR ---
ASSUMED PT CARE FROM ED AT 0100 PT ARRIVED ON ZOLL MONITOR WITH HR LABILE AND ANYWHERE FROM 40-70 WITH OCCASIONAL PAUSES, ONE PAUSE MEASURED 5-6 SECONDS LONG, SEE STRIP IN CHART. PT IS ALERT AND ORIENTED AND ABLE TO MAKE NEEDS KNOWN. HX OF CVA; THEREFORE, LEFT SIDED WEAKNESS WITH LEFT EYE DROOP, AND SPEECH THAT IS SLIGHTLY SLURRED; HOWEVER, PT ALSO HAS NO TEETH AND DOES NOT HAVE DENTURES WITH HIM AT THIS TIME. UPON TRANSFERRING PT TO THE ICU ZOLL AND MONITOR WE HAD TO CHAGNE OUT ZOLL PADS D/T POOR CONNECTIVITY R/T CHEST HAIR; THEREFORE, SHAVED AND PLACED NEW PADS. TRANSCUTAENOUS PACING SET AT 8 MA WITH HR SET AT 50, BUT THEN LOWERED TO 44 D/T PT'S HR REMAINING AROUND THE 50'S. PT IS ASYMPTOMATIC; BP IS STABLE WITH SYSTOLICS NOTED 120-140'S. PT DENIES FEELING DIZZY OR SHORT OF BREATH. HOWEVER, DID COMPLAIN OF PAIN FROM BEING PACED. THEREFORE, PLACED CALL TO DR. MOON WITH NEW ORDERS FOR VERSED AND FENTANYL; SEE EMAR. ASKED PT ABOUT POTENTIAL "SEIZURE LIKE ACTIVITY" AT HOME AND ASKED ABOUT ANY DROWSINESS DURING THE POST ICTAL PHASE; PT DENIED AND SAID PRIOR TO THE EVENT HE JUST BECAME DIZZY AND FAINTED; HOWEVER, HE STATES HE RECALLS THE ENTRIE EVENT BEFORE AND AFTER. PT IS NOW CURRENTLY SLEEPING AND APPEARS COMFORTABLE AT THIS TIME. WILL CONTINUE TO MONITOR UNTIL REPORT IS HANDED OFF TO ONCOMING RN.
[2020-08-11 04:14] LABS: Alanine Aminotransfer (ALT/SGP 17 U/L (12-78); Albumin, Blood 3.1 g/dL (3.4-5.0); Alk Phos 51 U/L (50-136); Anion Gap 5 mmol/L (6-16); Aspartate Aminotrans (AST/SGOT 8 U/L (12-37); Bilirubin, Total 0.4 mg/dL (0.1-1.0); Blood Urea Nitrogen 21 mg/dL (8-24); Bun/Creatinine Ratio 24.3 (12.0-20.0); CO2, Blood 29 mmol/L (21-32); Calcium, Blood 8.5 mg/dL (8.5-10.1); Chloride, Blood 113 mmol/L (98-108); Creatinine, Blood 0.86 mg/dL (0.60-1.20); Globulin, Blood 3.1 g/dL (2.2-4.0); Glomerular Filtration Rate >60 (60-); Glucose, Blood 128 mg/dL (70-99); Potassium, Blood 4.1 mmol/L (3.5-5.5); Sodium, Blood 147 mmol/L (136-145); Total Protein, Blood 6.2 g/dL (6.4-8.2)
--- NOTE | 2020-08-11 06:23 | NUR ---
CHANGE IN TRANSCUTAENOUS PACING SETTINGS: RATE CHANGED TO 30 D/T PT FLUCTUATING IN RATE SO MUCH THAT HE WAS BEING 100% PACED EVEN WITH RATE GREATER THAN 44. PT REMAINS ASYMPTOMATIC WITH STABLE BP. NO PAUSES NOTED SINCE RATE WAS DECREASED. IF PT HAS ANOTHER LONG PAUSE, WILL INCREASE RATE IN ORDER TO CAPTURE AND PACE AGAIN. PT RESTING COMFORTABLY
--- NOTE | 2020-08-11 08:00 | NUR ---
INITIAL ASSESSMENT PATIENT ALERT AND ORIENTED X 4, HOWEVER IS FORGETFUL AT TIMES. PATIENT HAS HX OF CVA. LEFT EYE LID DROOPY. LEFT SIDED WEAKNESS NOTED. PATIENT STATES HE USES WALKER WHEN OUT OF HOUSE. PATIENT COOPERATIVE BUT IRRITABLE AT TIMES WITH NURSING CARE. PATIENT AFEBRILE. PATIENT DENIES PAIN. LUNGS CLEAR T/O. PATIENT SATTING 90% AND GREATER ON RA TO 2 L NC. PATIENT ON TRANSCUTANEOUS PACER AT 8 MA AND RATE OF 30. UNDERLYING 2:1 HEART BLOCK. PATIENT OCCASIONALLY PACED. HR RANGING FROM 50S TO 80S. SBP 140S TO 160S. GI WNL. WNL. DARK BROWN DISCOLORATION NOTED TO LLE. OTHERWISE SKIN APPEARS C/D/I. PATIENT REPOSITIONING SELF IN BED. 1/2 NS INFUSING AT 100 MLS/ HOUR. PATIENT HAVING ECHO AT THIS TIME. DR. TIJERINA HERE ALREADY TO SEE PATIENT, PACER SETTINGS AND RHYTHM STRIPS. DR. TIJERINA PLANNING TO TAKE PATIENT THIS AM FOR PERMANENT PACER PLACEMENT. BED LOW, CALL LIGHT IN REACH. WILL CONTINUE TO MONITOR PATIENT FREQUENTLY THROUGHOUT SHIFT.
--- NOTE | 2020-08-11 12:00 | NUR ---
PATIENT AFEBRILE. NO COMPLAINTS. REMAINS SATTING 90% AND GREATER ON RA TO 2 L NC. PATIENT REMAINS WITH INTERMITTENT 2:1 HEART BLOCK/ PACING. HR 40S TO 80S. SBP 1-TEENS TO 160S. BLOOD SUGAR OF 96; NO COVERAGE INDICATED. NO OTHER ACUTE CHANGES TO NOTE ON AT THIS TIME. WILL CONTINUE TO MONITOR.
[2020-08-11 13:00] LABS: Influenza A, PCR NEGATIVE (NEGATIVE); Influenza B, PCR NEGATIVE (NEGATIVE); Resp Syncytial Virus, PCR NEGATIVE (NEGATIVE); SARS-Cov-2 (COVID-19) PCR, MMC NEGATIVE (NEGATIVE)
--- NOTE | 2020-08-11 15:10 | NUR ---
PATIENT TAKEN TO MANAGER RELIABILITY FOR PACEMAKER PROCEDURE.
--- NOTE | 2020-08-11 17:13 | NUR ---
echocardiogram complete
--- NOTE | 2020-08-11 17:50 | NUR ---
PATIENT RETURNED FROM [facility]. PATIENT HAS DPPM- DUAL CHAMBER PACEMAKER INSERTED TO LEFT CHEST. RATE OF 60. PATIENT HAS NO COMPLAINTS AT THIS TIME.
--- NOTE | 2020-08-11 19:00 | NUR ---
SHIFT SUMMARY PATIENT REMAINED ALERT AND ORIENTED WITH SOME PERIODS OF FORGETFULNESS. PATIENT MOSTLY COOPERATIVE, WITH SOME IRRITABILITY DURING SHIFT. PATIENT REMAINED AFEBRILE. PATIENT HAD NO COMPLAINTS OF PAIN. PATIENT GIVEN PRN VERSED OT FOR INCREASED ANXIETY. PATIENT SATTED 90% AND GREATER ON RA TO 2 L NC. PATIENT IN 2:1 HEART BLOCK WITH TRANSCUTANEOUS PACING 8 MA AND RATE OF 30 BEFORE HEADING TO FISCAL ANALYST. PATIENT CAME BACK WITH DPPM DUAL CHAMBER PACEMAKER TO LEFT SIDE OF CHEST. RATE SET AT 60. SLING PLACED UPON RETURN. CALLED UPON RETURN AND UPDATED. NO BM THIS SHIFT. PATIENT HAS NOW EATEN CARDIAC DINNER AND IS HAPPY AFTER EATING. WNL; PATIENT BEING ASSISTED WITH USE OF URINAL. IVS SALINE LOCKED. ECHO PERFORMED THIS SHIFT. BLOOD SUGARS 92-96. PATIENT APPEARS COMFORTABLE AT THIS TIME. BED LOW, CALL LIGHT IN REACH. ASSUMING CLINICAL APPLICATIONS SPECIALIST NURSE HAS BEEN GIVEN REPORT.
--- NOTE | 2020-08-11 20:14 | NUR ---
CARE ASSUMPTION AT BEGINNING OF SHIFT, PT'S BP ELEVATED. BP MEDICATIONS WERE HELD THIS MORNING D/T PROCEDURE. CALL PLACED TO NENA GARCIA. NENA GARCIA WITH ORDERS FOR NORVAS AND LISINOPRIL, SEE EMAR.
--- NOTE | 2020-08-11 23:46 | NUR ---
PT UPDATE PT CONTINUES TO HAVE ELEVATED BP. NENA GARCIA W/ ORDERS FOR PO HYDRALAZINE WITH SUCCESS OF LOWERING BP FROM 180'S SYSTOLIC TO 170'S SYSTOLIC. PT CONTINUES TO HAVE BP IN 170'S SYSTOLIC. CALL PLACED TO NENA GARCIA. NENA GARCIA WITH ORDERS FOR IV HYDRALAZINE PRN, SEE EMAR.
--- NOTE | 2020-08-12 06:13 | NUR ---
SHIFT SUMMARY PT A&OX4. SOMETIMES FORGETFUL. SP02>92% ON RA. PT HAD OCCASIONAL DRY COUGH. TELEMETRY READ PACED, HR 60'S-80'S. BP WAS ELEVATED THIS SHIFT, MEDICATED PER EMAR, SEE PREVIOUS NOTES. LATEST BP IS 140'S SYSTOLIC. PT HAD PACE MAKER PLACED, DRESSING STAYED C/D/I, ARM SLING IN PLACE T/O SHIFT. PT C/O OF 9/10 STOMACH PAIN. MEDICATED W/ TYLENOL X1 PER EMAR W/ SUCCESSFUL RELIEF. PT C/O OF NAUSEA AT END OF SHIFT. MEDICATED W/ ZOFRAN X1 PER EMAR. PT USED URINAL AT BEDSIDE MULTIPLE TIMES THIS SHIFT. PT ALSO ATTEMPTED TO USE BEDPAN TO HAVE BM BUT COULDNT. PT ENDED UP HAVING INCONTINENT BM. LINEN CHANGED. ABX INFUSED PER EMAR THIS SHIFT. PT USED CALL LIGHT APPROPRIATELY. WILL GIVE REPORT TO ONCOMING NURSE.
--- NOTE | 2020-08-12 09:19 | NUR ---
CARE ASSUMED OF PT AT 0700. PT RESTLESS IN BED. PT STATED THIS AM THAT HE DID NOT FEEL WELL. VERY MAGGI W SYMPTOMS, BUT WAS HOPING TO BE DISCHARGED TODAY. PT TWO PERSON ASSIST TO CHAIR THIS AM FOR BREAKFAST. PT ABLE TO SUPPORT OWN WEIGHT. AFTER A SMALL AMT OF BREAKFAST PT HAD C/O NAUSEA. ZOFRAN GIVEN, PO MEDS HELD FOR NOW. BLOOD SUGAR STABLE. BP WNL. PT PACED AT 80. DRSG TO LEFT CHEST WALL C/D/I, SLING TO LEFT ARM.
[2020-08-12 10:00] LABS: BASOPHILS ABSOLUTE AUTO 0.02 K/mm3 (0.00-0.23); BASOPHILS PERCENT AUTO 0 % (0-2); EOSINOPHILS ABSOLUTE AUTO 0.01 K/mm3 (0.00-0.68); EOSINOPHILS PERCENT AUTO 0 % (0-6); Hemoglobin 12.2 g/dL (13.5-17.5); IMMATURE GRAN ABSOLUTE AUTO 0.06 K/mm3 (0.00-0.10); IMMATURE GRAN PERCENT AUTO 1 % (0-1); LYMPHOCYTES ABSOLUTE AUTO 1.84 K/mm3 (0.84-5.20); LYMPHOCYTES PERCENT AUTO 18 % (21-46); MONOCYTES ABSOLUTE AUTO 0.58 K/mm3 (0.16-1.47); MONOCYTES PERCENT AUTO 6 % (4-13); Mean Corpuscular HGB Conc 33.9 g/dL (31.5-36.5); Mean Corpuscular Volume 92 fL (80-100); NEUTROPHILS ABSOLUTE AUTO 7.83 K/mm3 (1.96-9.15); NEUTROPHILS PERCENT AUTO 76 % (41-73); Platelet Count 69 K/mm3 (150-400); RDW Coefficient Variation 12.5 % (11.7-14.2); RDW Standard Deviation 41.6 fL (35.1-46.3); Red Blood Cell Count 3.93 M/mm3 (4.30-5.90); White Blood Cell Count 10.34 K/mm3 (4.00-11.30)
[2020-08-12 10:17] LABS: Mean Platelet Volume 13.9 fL (9.1-12.4)
[2020-08-12 10:27] LABS: Anion Gap 6 mmol/L (6-16); Blood Urea Nitrogen 17 mg/dL (8-24); Bun/Creatinine Ratio 22.1 (12.0-20.0); CO2, Blood 24 mmol/L (21-32); Chloride, Blood 112 mmol/L (98-108); Creatinine, Blood 0.77 mg/dL (0.60-1.20); Glomerular Filtration Rate >60 (60-); Glucose, Blood 174 mg/dL (70-99); Sodium, Blood 142 mmol/L (136-145)
[2020-08-12] MEDS ORDERED: LISI20 PO (11:49)
[2020-08-12] MEDS ORDERED: ONDA4ODT MM (11:50)
--- NOTE | 2020-08-12 13:33 | NUR ---
OKAY TO DC HOME PER DR TIJERINA. DR DAVIS PLACED ORDERS. HOLD LOVENOX, OKAY TO GIVE PLAVIX PER DR TIJERINA. PRESSURE DRSG REMOVED PER DR TIJERINA. OPSITE CLEAR, NO SIGNS OF BLEEDING SWELLING, SLING REMAINS IN PLACE. DR REYES POST OP PACEMAKER INSTRUCTIONS GIVEN TO PT AND PT'S W CLEAR UNDERSTANDING. PACEMAKER CARD AND BOOKLET SENT HOME W PT'S . SANTA CALLED INTO [facility]. PT DID STATE THAT NAUSEA WAS IMPROVED. PT ABLE TO TAKE PO MEDS PRIOR TO DISCHARGE. VSS. PT ESCORTED TO CAR VIA WHEELCHAIR AT 1235.
== END 2020-08-12 12:35 | disposition home or self-care (01) ==
LOC: ER 21:53 → ICUW 21:54 → ER 08-11 00:30 → ICUW 08-11 00:30 → ER 08-11 00:58 → ICUW 08-11 01:00
PROVIDERS: Emergency Medicine; Internal Medicine; Internal Medicine Cardiovascular Disease; ADMIT Internal Medicine
DX: I49.5 Sick sinus syndrome (principal); I45.5 Other specified heart block; R55 Syncope and collapse; I10 Essential (primary) hypertension; R56.9 Unspecified convulsions; I35.0 Nonrheumatic aortic (valve) stenosis; E11.51 Type 2 diabetes mellitus with diabetic peripheral angiopathy without gangrene; I82.409 Acute embolism and thrombosis of unspecified deep veins of unspecified lower extremity; I45.2 Bifascicular block; I05.2 Rheumatic mitral stenosis with insufficiency; I71.4 Abdominal aortic aneurysm, without rupture; E87.0 Hyperosmolality and hypernatremia; E86.0 Dehydration; I44.2 Atrioventricular block, complete; Z20.822 Contact with and (suspected) exposure to COVID-19; Z79.4 Long term (current) use of insulin; Z87.891 Personal history of nicotine dependence; Z95.2 Presence of prosthetic heart valve
CPT/HCPCS: 0241U; 33208; 36415; 71045; 71046; 76937; 80048; 80053; 81001; 82947; 83735; 84443; 84484; 85025; 93005; 93010; 93306; 96365; 96375; 96376; 99152; 99153; 99285-25; A9270; C1781; C1785; C1894; C1898; G0378; J0360; J0461; J0690; J1644; J1953; J2250; J2405; J3010; J7030; J7040; J7050

== ENCOUNTER 2021-06-13 10:50 | Inpatient (IN) | payer MEDICARE, OTHER ==
[~2021-06-13] VITALS: Ht 182.9 cm; Wt 111.5 kg
[~2021-06-13 10:50] MED LIST changes: +ASPI81CH PO; +ATORVASTATIN CA80 M1 PO; +Glucophage 500 mg PO; +HUMALOG KW100 UNIT/1 SC; +Hydrocodone-Acetamin PO; +Januvia50 MG PO; +LEVE500 PO; +LYRICA150 M1 PO; +MECL25 PO; +ONDA4ODT MM; +PRED20 PO; +PREG75 PO; +ZESTRIL40 M1 PO
[2021-06-13 11:26] LABS: BASOPHILS ABSOLUTE AUTO 0.04 K/mm3 (0.00-0.23); BASOPHILS PERCENT AUTO 0 % (0-2); EOSINOPHILS ABSOLUTE AUTO 0.31 K/mm3 (0.00-0.68); EOSINOPHILS PERCENT AUTO 3 % (0-6); Hematocrit 39.9 % (37.0-53.0); Hemoglobin 13.4 g/dL (13.5-17.5); IMMATURE GRAN ABSOLUTE AUTO 0.04 K/mm3 (0.00-0.10); IMMATURE GRAN PERCENT AUTO 0 % (0-1); LYMPHOCYTES PERCENT AUTO 26 % (21-46); MONOCYTES ABSOLUTE AUTO 0.61 K/mm3 (0.16-1.47); MONOCYTES PERCENT AUTO 6 % (4-13); Mean Corpuscular HGB 28.5 pg (26.0-34.0); Mean Corpuscular HGB Conc 33.6 g/dL (31.5-36.5); Mean Corpuscular Volume 85 fL (80-100); NEUTROPHILS ABSOLUTE AUTO 6.09 K/mm3 (1.96-9.15); NEUTROPHILS PERCENT AUTO 64 % (41-73); Platelet Count 126 K/mm3 (150-400); RDW Coefficient Variation 13.8 % (11.7-14.2); RDW Standard Deviation 42.5 fL (35.1-46.3); White Blood Cell Count 9.59 K/mm3 (4.00-11.30)
[2021-06-13 11:27] LABS: Mean Platelet Volume 13.3 fL (9.1-12.4)
[2021-06-13 11:49] LABS: Alanine Aminotransfer (ALT/SGP 20 U/L (12-78); Albumin, Blood 3.6 g/dL (3.4-5.0); Albumin/Globulin Ratio 1.1 (0.8-1.8); Alk Phos 74 U/L (50-136); Anion Gap 6 mmol/L (6-16); Aspartate Aminotrans (AST/SGOT 18 U/L (12-37); Bilirubin, Total 0.6 mg/dL (0.1-1.0); Blood Urea Nitrogen 13 mg/dL (8-24); Bun/Creatinine Ratio 19.2 (12.0-20.0); CO2, Blood 27 mmol/L (21-32); Calcium, Blood 8.9 mg/dL (8.5-10.1); Chloride, Blood 107 mmol/L (98-108); Creatinine, Blood 0.68 mg/dL (0.60-1.20); Globulin, Blood 3.2 g/dL (2.2-4.0); Glomerular Filtration Rate >60 (60-); Glucose, Blood 186 mg/dL (70-99); Potassium, Blood 3.8 mmol/L (3.5-5.5); Sodium, Blood 140 mmol/L (136-145); Total Protein, Blood 6.8 g/dL (6.4-8.2)
[2021-06-13 13:59] LABS: Anti-Xa UFH, PHA Monitoring <0.10 IU/mL; International Normalized Ratio 1.04; Prothrombin Time Results 10.9 Sec (9.7-11.5)
--- NOTE | 2021-06-13 19:37 | NUR ---
PT ARRIVED TO ROOM AT 1814. ABLE TO TRANSFER FROM [facility] TO BED AND WAS GIVEN A QUICK BATH DUE TO INCONTINENCE IN ED AND REPORTEDLY REFUSING TO ALLOW THEM TO CHANGE HIM OR BE CHANGED. COOPERATIVE WITH CARE SINCE ARRIVAL. SITTING UP ON SIDE OF BED TO EAT SUPPER. DR. GARCIA IN TO SEE PT. REPORT GIVEN TO ONCOMING SHIFT.
--- NOTE | 2021-06-13 19:49 | NUR ---
RECIEVED SHIFT REPORT ON PATIENT AND CAME IN TO WATCH DR GARCIA ASSESS THE PATIRNT. PATIENT REPORTED DIFFICULTY BREATHING. VITALS WERE OBTAINED AND THE PATIENT WAS FOUND TO HAVE O22 SATURATION IN LOW 80'S WHICH RAPIDLY DECLINED TO THE 70'S. PATIENT WAS PUT ON NON REBREATHER @ 15LPM. SATS IMPROVED. CPAP WAS NOT TOLERATED INITIALLY BY PATIENT THEN PATIENT CHANGED HIS MIND. CPATIENT SETTING IS 12/6 +15L.
[2021-06-13 20:07] LABS: Base Excess Venous 1.8 mmol/L; Bicarbonate Venous 24.7 mmol/L (24.0-30.0); PCO2 Venous 49.1 mmHg (38-42); PO2 Venous 40.7 mmHg (38-42); pH Blood Venous 7.35 (7.34-7.37)
[2021-06-13] MEDS ORDERED: DOCUZEN 8.6-501 EACH PO (20:39)
[2021-06-13] MEDS ORDERED: Norco 10-325 T1 EACH PO (20:43)
--- NOTE | 2021-06-14 05:43 | NUR ---
PATIENT RESTED WELL OVERNIGHT. PATIENT REMOVED CPAP AND WAS PLACED BACK ON NON REBREATHER. HE THEN REMOVED THAT AND WAS ON RA SATTING IN THE LOW 90'S. PATIENT HAS Q2 HOUR DOPPLERS OF HIS DP PULSE AND PT PULSES. ALL WERE AUDIBLE ALTHOUGH WEAK. PATIENT DID WELL STAYING IN THE BED HOWEVER HE WILL ATTEMPT TO GET UP WITHOUT CALLING IF HE NEEDS TO URINATE. BSC IS PRESENT AND TRANSFER ASSIST OF 2 IS NEEDED. PATIENTS LUNGS HAD RHONCHI T/O. 40MG OF IV LASIX WAS GICEN AND PATIENT IS NOW ABLE TO BREATH WITH LESS DIFFICULTY. CALL LIGHT IN REACH BED IN LOWEST POSITION, BED ALARM ON.
[2021-06-14 11:01] LABS: BASOPHILS ABSOLUTE AUTO 0.04 K/mm3 (0.00-0.23); BASOPHILS PERCENT AUTO 0 % (0-2); EOSINOPHILS ABSOLUTE AUTO 0.06 K/mm3 (0.00-0.68); EOSINOPHILS PERCENT AUTO 1 % (0-6); Hematocrit 39.5 % (37.0-53.0); Hemoglobin 12.8 g/dL (13.5-17.5); IMMATURE GRAN ABSOLUTE AUTO 0.03 K/mm3 (0.00-0.10); IMMATURE GRAN PERCENT AUTO 0 % (0-1); LYMPHOCYTES ABSOLUTE AUTO 3.28 K/mm3 (0.84-5.20); LYMPHOCYTES PERCENT AUTO 26 % (21-46); MONOCYTES ABSOLUTE AUTO 0.74 K/mm3 (0.16-1.47); MONOCYTES PERCENT AUTO 6 % (4-13); Mean Corpuscular HGB 28.6 pg (26.0-34.0); Mean Corpuscular HGB Conc 32.4 g/dL (31.5-36.5); Mean Corpuscular Volume 88 fL (80-100); Mean Platelet Volume 12.9 fL (9.1-12.4); NEUTROPHILS PERCENT AUTO 67 % (41-73); Platelet Count 132 K/mm3 (150-400); RDW Coefficient Variation 14.1 % (11.7-14.2); RDW Standard Deviation 45.3 fL (35.1-46.3); Red Blood Cell Count 4.48 M/mm3 (4.30-5.90); White Blood Cell Count 12.65 K/mm3 (4.00-11.30)
[2021-06-14 11:42] LABS: Alanine Aminotransfer (ALT/SGP 20 U/L (12-78); Albumin, Blood 3.2 g/dL (3.4-5.0); Albumin/Globulin Ratio 0.8 (0.8-1.8); Alk Phos 68 U/L (50-136); Anion Gap 8 mmol/L (6-16); Aspartate Aminotrans (AST/SGOT 18 U/L (12-37); Bilirubin, Total 0.8 mg/dL (0.1-1.0); Blood Urea Nitrogen 13 mg/dL (8-24); Bun/Creatinine Ratio 17.4 (12.0-20.0); CO2, Blood 26 mmol/L (21-32); Calcium, Blood 9.2 mg/dL (8.5-10.1); Chloride, Blood 108 mmol/L (98-108); Creatinine, Blood 0.75 mg/dL (0.60-1.20); Globulin, Blood 3.9 g/dL (2.2-4.0); Glomerular Filtration Rate >60 (60-); Glucose, Blood 148 mg/dL (70-99); Potassium, Blood 3.8 mmol/L (3.5-5.5); Sodium, Blood 142 mmol/L (136-145); Total Protein, Blood 7.1 g/dL (6.4-8.2)
--- NOTE | 2021-06-14 17:11 | NUR ---
I went to visit the patient in his [employer] room 303 earlier, he was sleeping and not feeling well he stated. I asked if I could call his instead, he agreed to this. I called Argenis Banks [phone] and she states they live together in a single story home. The patient currently receives home health services from [facility] and likely to continue. They do not have family in the area but, she states that they have taoist friends support. Argenis drives and helps with transportation - she is aware the patient may discharge tomorrow afternoon and she will be providing transportation home. She states the patient uses a cane at home. The patient has also previously stayed at [facility] for rehabilitation after a hospital stay. I scheduled a hospital follow up for next week with Dr. Cheri Cotton on June 11:40 AM. Patient's spouse is aware of this.
--- NOTE | 2021-06-14 17:46 | NUR ---
SHIFT SUMMARY PATIENT IS ALERT AND ORIENTED X 2-3. PATIENT HAS BEEN RESTING MOST OF DAY. PATIENT WEARS A CPAP AT NIGHT. PATIENT HAS BEEN SATTING IN THE LOW 90S MOST OF SHIFT ON ROOM AIR. DR CHANGED THE DP AND PT PULSES TO TWICE A SHIFT. NO ACUTE ISSUES THIS SHIFT. HEPARIN IS BEING MANAGED BY PHARMACY. VITAL SIGNS REVIEWED. WILL MONITOR UNTIL MANAGER CULTURE.
[2021-06-15 00:33] LABS: BASOPHILS ABSOLUTE AUTO 0.04 K/mm3 (0.00-0.23); BASOPHILS PERCENT AUTO 1 % (0-2); EOSINOPHILS ABSOLUTE AUTO 0.23 K/mm3 (0.00-0.68); EOSINOPHILS PERCENT AUTO 3 % (0-6); IMMATURE GRAN ABSOLUTE AUTO 0.03 K/mm3 (0.00-0.10); IMMATURE GRAN PERCENT AUTO 0 % (0-1); LYMPHOCYTES ABSOLUTE AUTO 3.03 K/mm3 (0.84-5.20); LYMPHOCYTES PERCENT AUTO 36 % (21-46); MONOCYTES ABSOLUTE AUTO 0.58 K/mm3 (0.16-1.47); MONOCYTES PERCENT AUTO 7 % (4-13); Mean Corpuscular HGB 28.4 pg (26.0-34.0); Mean Corpuscular HGB Conc 33.3 g/dL (31.5-36.5); Mean Corpuscular Volume 85 fL (80-100); Mean Platelet Volume 12.9 fL (9.1-12.4); NEUTROPHILS ABSOLUTE AUTO 4.63 K/mm3 (1.96-9.15); NEUTROPHILS PERCENT AUTO 54 % (41-73); Platelet Count 122 K/mm3 (150-400); RDW Coefficient Variation 14.2 % (11.7-14.2); RDW Standard Deviation 43.8 fL (35.1-46.3); Red Blood Cell Count 4.57 M/mm3 (4.30-5.90); White Blood Cell Count 8.54 K/mm3 (4.00-11.30)
[2021-06-15 00:49] LABS: Albumin, Blood 3.3 g/dL (3.4-5.0); Anion Gap 6 mmol/L (6-16); Blood Urea Nitrogen 16 mg/dL (8-24); Bun/Creatinine Ratio 20.6 (12.0-20.0); CO2, Blood 26 mmol/L (21-32); Calcium, Blood 9.3 mg/dL (8.5-10.1); Chloride, Blood 110 mmol/L (98-108); Creatinine, Blood 0.78 mg/dL (0.60-1.20); Glomerular Filtration Rate >60 (60-); Glucose, Blood 139 mg/dL (70-99); Magnesium, Blood 1.9 mg/dL (1.6-2.4); Phosphorus, Blood 3.1 mg/dL (2.5-4.9); Potassium, Blood 3.6 mmol/L (3.5-5.5); Sodium, Blood 142 mmol/L (136-145)
--- NOTE | 2021-06-15 05:57 | NUR ---
PT IS A/OX3-4. HE USED THE CALL LIGHT VERY WELL. HE DID REFUSE CPAP, BUT WAS SATTING IN THE 90s ON RA. AN ANTI Xa WAS DRAWN AT MIDNIGHT, PHARMACY CONFIRMED HIS CURRENT HEPARIN THERAPY IS APPROPRIATE. HIS DP PULSES ARE AUDIBLE AND MARKED. PT PULSES ARE AUDIBLE WELL. CALL LIGHT IS WITHIN REACH AND BED IS IN THE LOWEST POSITION.
[2021-06-15] MEDS ORDERED: ELIQUIS5 M2 PO (11:34)
[2021-06-15] MEDS ORDERED: CEPH500 PO (11:35)
--- NOTE | 2021-06-15 14:24 | NUR ---
SUMMARY/DISCHARGE PT DISCHARGED TO HOME, SPOUSE HER FOR INSTRUCTIONS, PT AND SPOUSE VERBALIZED UNDERSTANDING OF DISCHARGE INSTRUCTIONS REGARDING MEDS AND FOLLOW UP, ALISSA EXCEPTIONAL CHILDREN TEACHER ASSISTANT GAVE PT SAMPLE ELIQUIS TO TAKE HOME, PT TAKEN OUT SAFELY VIA WHEELCHAIR
== END 2021-06-15 13:28 | disposition home or self-care (01) | DRG 300 ==
LOC: ER 10:50 → ERHOLD 14:40 → MEDS 14:40 → ENPENDDIS 06-15 11:11 → MEDS 06-15 13:28
PROVIDERS: Internal Medicine; Pharmacist; Physician Assistant; ADMIT Family Medicine
DX: I74.3 Embolism and thrombosis of arteries of the lower extremities (principal); I75.022 Atheroembolism of left lower extremity; M86.8X7 Other osteomyelitis, ankle and foot; E11.42 Type 2 diabetes mellitus with diabetic polyneuropathy; E11.51 Type 2 diabetes mellitus with diabetic peripheral angiopathy without gangrene; I10 Essential (primary) hypertension; I35.0 Nonrheumatic aortic (valve) stenosis; E78.5 Hyperlipidemia, unspecified; Z66 Do not resuscitate; G89.29 Other chronic pain; E11.65 Type 2 diabetes mellitus with hyperglycemia; I71.4 Abdominal aortic aneurysm, without rupture; I11.0 Hypertensive heart disease with heart failure; I50.9 Heart failure, unspecified; E66.09 Other obesity due to excess calories; I51.3 Intracardiac thrombosis, not elsewhere classified; Z86.73 Personal history of transient ischemic attack (TIA), and cerebral infarction without residual deficits; Z87.891 Personal history of nicotine dependence; Z68.32 Body mass index [BMI] 32.0-32.9, adult; Z79.4 Long term (current) use of insulin; Z79.899 Other long term (current) drug therapy; Z79.82 Long term (current) use of aspirin; Z79.02 Long term (current) use of antithrombotics/antiplatelets; Z79.84 Long term (current) use of oral hypoglycemic drugs; Z95.0 Presence of cardiac pacemaker; Z95.2 Presence of prosthetic heart valve; Z79.01 Long term (current) use of anticoagulants
CPT/HCPCS: 36415; 71045; 73630; 75635; 80053; 80069; 82803; 82947; 83690; 83735; 83880; 85025; 85520; 85610; 85651; 85730; 86140; 93005; 93010; 93926; 94660; 94762; 96365-59; 96366-59; 96367-59; 96375-59; 96376-59; 97116; 97162; 97166; 97535; 99285-25; A9270; C8923; J0696; J1644; J1815; J1940; J3370; J7050; Q9957; Q9967

== ENCOUNTER → 2021-06-21 | Outpatient (CLI) | payer BC, OTHER ==
[~2021-06-21] MED LIST changes: +CEPH500 PO; +DOCUZEN 8.6-501 EACH PO; +ELIQUIS5 M2 PO
== END | disposition home or self-care (01) ==
LOC: LAB SHORT 16:12
DX: E11.621 Type 2 diabetes mellitus with foot ulcer (principal); L97.509 Non-pressure chronic ulcer of other part of unspecified foot with unspecified severity; L03.032 Cellulitis of left toe
CPT/HCPCS: 87070; 87075; 87205

== ENCOUNTER 2021-08-06 01:19 | Day surgery (SDC) | payer MEDICARE, OTHER | END 2021-08-06 23:28 | disposition home or self-care (01) | LOC: WOUND 01:19 | DX: E11.621 Type 2 diabetes mellitus with foot ulcer (principal); L97.522 Non-pressure chronic ulcer of other part of left foot with fat layer exposed; E11.42 Type 2 diabetes mellitus with diabetic polyneuropathy; E11.52 Type 2 diabetes mellitus with diabetic peripheral angiopathy with gangrene; I96 Gangrene, not elsewhere classified; J44.9 Chronic obstructive pulmonary disease, unspecified; I11.0 Hypertensive heart disease with heart failure; I50.9 Heart failure, unspecified; I25.10 Atherosclerotic heart disease of native coronary artery without angina pectoris; Z87.891 Personal history of nicotine dependence | CPT/HCPCS: G0463 ==

== ENCOUNTER 2021-08-15 01:50 | Day surgery (SDC) | payer MEDICARE, OTHER | END 2021-08-15 23:19 | disposition home or self-care (01) | LOC: WOUND 01:50 | DX: E11.621 Type 2 diabetes mellitus with foot ulcer (principal); L97.522 Non-pressure chronic ulcer of other part of left foot with fat layer exposed; E11.42 Type 2 diabetes mellitus with diabetic polyneuropathy; E11.52 Type 2 diabetes mellitus with diabetic peripheral angiopathy with gangrene; I96 Gangrene, not elsewhere classified | CPT/HCPCS: G0463 ==

== ENCOUNTER 2021-08-22 03:18 | Day surgery (SDC) | payer MEDICARE, OTHER | END 2021-08-22 23:00 | disposition home or self-care (01) | LOC: WOUND 03:18 | DX: E11.621 Type 2 diabetes mellitus with foot ulcer (principal); L97.522 Non-pressure chronic ulcer of other part of left foot with fat layer exposed; E11.42 Type 2 diabetes mellitus with diabetic polyneuropathy; I96 Gangrene, not elsewhere classified | CPT/HCPCS: A9270 ==

== ENCOUNTER 2021-08-29 00:59 | Day surgery (SDC) | payer MEDICARE, OTHER | END 2021-08-29 23:12 | disposition home or self-care (01) | LOC: WOUND 00:59 | DX: E11.621 Type 2 diabetes mellitus with foot ulcer (principal); L97.522 Non-pressure chronic ulcer of other part of left foot with fat layer exposed; E11.42 Type 2 diabetes mellitus with diabetic polyneuropathy; E11.52 Type 2 diabetes mellitus with diabetic peripheral angiopathy with gangrene; I96 Gangrene, not elsewhere classified; Z95.2 Presence of prosthetic heart valve | CPT/HCPCS: A9270 ==

== ENCOUNTER 2021-09-25 02:20 | Day surgery (SDC) | payer MEDICARE, OTHER | END 2021-09-25 22:57 | disposition home or self-care (01) | LOC: WOUND 02:20 | DX: E11.621 Type 2 diabetes mellitus with foot ulcer (principal); L97.522 Non-pressure chronic ulcer of other part of left foot with fat layer exposed; E11.52 Type 2 diabetes mellitus with diabetic peripheral angiopathy with gangrene; I70.262 Atherosclerosis of native arteries of extremities with gangrene, left leg; E11.42 Type 2 diabetes mellitus with diabetic polyneuropathy | CPT/HCPCS: G0463 ==

== ENCOUNTER 2021-10-10 01:10 | Day surgery (SDC) | payer MEDICARE, OTHER | END 2021-10-10 22:44 | disposition home or self-care (01) | LOC: WOUND 01:10 | DX: E11.52 Type 2 diabetes mellitus with diabetic peripheral angiopathy with gangrene (principal); I70.262 Atherosclerosis of native arteries of extremities with gangrene, left leg; L97.529 Non-pressure chronic ulcer of other part of left foot with unspecified severity; E11.621 Type 2 diabetes mellitus with foot ulcer; Z79.01 Long term (current) use of anticoagulants; E11.42 Type 2 diabetes mellitus with diabetic polyneuropathy | CPT/HCPCS: G0463 ==

== ENCOUNTER 2021-10-24 02:26 | Day surgery (SDC) | payer MEDICARE, OTHER | END 2021-10-24 23:37 | disposition home or self-care (01) | LOC: WOUND 02:26 | DX: E11.621 Type 2 diabetes mellitus with foot ulcer (principal); L97.522 Non-pressure chronic ulcer of other part of left foot with fat layer exposed; L97.519 Non-pressure chronic ulcer of other part of right foot with unspecified severity; E11.52 Type 2 diabetes mellitus with diabetic peripheral angiopathy with gangrene; I96 Gangrene, not elsewhere classified; I70.202 Unspecified atherosclerosis of native arteries of extremities, left leg; E11.42 Type 2 diabetes mellitus with diabetic polyneuropathy; Z79.01 Long term (current) use of anticoagulants | CPT/HCPCS: G0463 ==

== ENCOUNTER 2021-11-07 01:07 | Day surgery (SDC) | payer MEDICARE, OTHER | END 2021-11-07 23:22 | disposition home or self-care (01) | LOC: WOUND 01:07 | DX: E11.621 Type 2 diabetes mellitus with foot ulcer (principal); L97.512 Non-pressure chronic ulcer of other part of right foot with fat layer exposed; L97.522 Non-pressure chronic ulcer of other part of left foot with fat layer exposed; E11.42 Type 2 diabetes mellitus with diabetic polyneuropathy; E11.8 Type 2 diabetes mellitus with unspecified complications; I96 Gangrene, not elsewhere classified; E11.51 Type 2 diabetes mellitus with diabetic peripheral angiopathy without gangrene; I70.202 Unspecified atherosclerosis of native arteries of extremities, left leg | CPT/HCPCS: A9270; G0463 ==

== ENCOUNTER 2021-11-21 01:25 | Day surgery (SDC) | payer MEDICARE, OTHER | END 2021-11-26 23:38 | disposition home or self-care (01) | LOC: WOUND 01:25 | DX: E11.621 Type 2 diabetes mellitus with foot ulcer (principal); L97.512 Non-pressure chronic ulcer of other part of right foot with fat layer exposed; L97.529 Non-pressure chronic ulcer of other part of left foot with unspecified severity; E11.42 Type 2 diabetes mellitus with diabetic polyneuropathy; E11.8 Type 2 diabetes mellitus with unspecified complications; E11.52 Type 2 diabetes mellitus with diabetic peripheral angiopathy with gangrene; I96 Gangrene, not elsewhere classified; E11.51 Type 2 diabetes mellitus with diabetic peripheral angiopathy without gangrene; I70.202 Unspecified atherosclerosis of native arteries of extremities, left leg | CPT/HCPCS: A9270 ==

== ENCOUNTER 2021-12-05 00:42 | Day surgery (SDC) | payer MEDICARE, OTHER | END 2021-12-05 22:45 | disposition home or self-care (01) | LOC: WOUND 00:42 | DX: L97.512 Non-pressure chronic ulcer of other part of right foot with fat layer exposed (principal); E11.42 Type 2 diabetes mellitus with diabetic polyneuropathy; E11.8 Type 2 diabetes mellitus with unspecified complications; E11.52 Type 2 diabetes mellitus with diabetic peripheral angiopathy with gangrene; I96 Gangrene, not elsewhere classified; E11.51 Type 2 diabetes mellitus with diabetic peripheral angiopathy without gangrene; I70.202 Unspecified atherosclerosis of native arteries of extremities, left leg; E11.621 Type 2 diabetes mellitus with foot ulcer | CPT/HCPCS: G0463 ==

== ENCOUNTER 2021-12-24 00:34 | Day surgery (SDC) | payer MEDICARE, OTHER | END 2021-12-24 23:11 | disposition home or self-care (01) | LOC: WOUND 00:34 | DX: E11.621 Type 2 diabetes mellitus with foot ulcer (principal); L97.529 Non-pressure chronic ulcer of other part of left foot with unspecified severity; L97.512 Non-pressure chronic ulcer of other part of right foot with fat layer exposed; E11.42 Type 2 diabetes mellitus with diabetic polyneuropathy; E11.8 Type 2 diabetes mellitus with unspecified complications; E11.52 Type 2 diabetes mellitus with diabetic peripheral angiopathy with gangrene; I70.262 Atherosclerosis of native arteries of extremities with gangrene, left leg | CPT/HCPCS: G0463 ==

== ENCOUNTER 2022-01-07 05:14 | Day surgery (SDC) | payer MEDICARE, OTHER | END 2022-01-07 23:27 | disposition home or self-care (01) | LOC: WOUND 05:14 | DX: E11.52 Type 2 diabetes mellitus with diabetic peripheral angiopathy with gangrene (principal); L97.512 Non-pressure chronic ulcer of other part of right foot with fat layer exposed; I70.202 Unspecified atherosclerosis of native arteries of extremities, left leg; E11.621 Type 2 diabetes mellitus with foot ulcer; E11.42 Type 2 diabetes mellitus with diabetic polyneuropathy | CPT/HCPCS: G0463 ==

== ENCOUNTER 2022-01-28 03:43 | Day surgery (SDC) | payer MEDICARE, OTHER | END 2022-01-28 22:57 | disposition home or self-care (01) | LOC: WOUND 03:43 | DX: E11.621 Type 2 diabetes mellitus with foot ulcer (principal); L97.512 Non-pressure chronic ulcer of other part of right foot with fat layer exposed; E11.51 Type 2 diabetes mellitus with diabetic peripheral angiopathy without gangrene; I70.202 Unspecified atherosclerosis of native arteries of extremities, left leg; E11.42 Type 2 diabetes mellitus with diabetic polyneuropathy; E11.8 Type 2 diabetes mellitus with unspecified complications; E11.52 Type 2 diabetes mellitus with diabetic peripheral angiopathy with gangrene; I96 Gangrene, not elsewhere classified | CPT/HCPCS: G0463 ==

== ENCOUNTER 2022-02-11 01:20 | Day surgery (SDC) | payer MEDICARE, OTHER | END 2022-02-11 23:07 | disposition home or self-care (01) | LOC: WOUND 01:20 | DX: E11.42 Type 2 diabetes mellitus with diabetic polyneuropathy (principal); E11.52 Type 2 diabetes mellitus with diabetic peripheral angiopathy with gangrene; I96 Gangrene, not elsewhere classified; E11.621 Type 2 diabetes mellitus with foot ulcer; E11.51 Type 2 diabetes mellitus with diabetic peripheral angiopathy without gangrene; I70.202 Unspecified atherosclerosis of native arteries of extremities, left leg | CPT/HCPCS: G0463 ==

== ENCOUNTER 2023-06-26 15:35 | Emergency (ER) | payer MEDICARE, OTHER ==
[~2023-06-26] VITALS: Ht 182.9 cm; Wt 108.9 kg
[~2023-06-26 15:35] MED LIST changes: +AMOCLA500 PO; +AZIT250 PO; +JARDIANCE10 MG PO; +PANTOPRAZOLE SO40 M1 PO; +PROBIOTIC1 EA13 PO; +SITA50T2 PO; +SOAANZ40 M1 PO
[2023-06-26 17:14] LABS: BASOPHILS ABSOLUTE AUTO 0.05 K/mm3 (0.00-0.23); BASOPHILS PERCENT AUTO 0 % (0-2); EOSINOPHILS ABSOLUTE AUTO 0.19 K/mm3 (0.00-0.68); EOSINOPHILS PERCENT AUTO 2 % (0-6); Hematocrit 28.3 % (37.0-53.0); Hemoglobin 7.3 g/dL (13.5-17.5); IMMATURE GRAN ABSOLUTE AUTO 0.07 K/mm3 (0.00-0.10); IMMATURE GRAN PERCENT AUTO 1 % (0-1); LYMPHOCYTES ABSOLUTE AUTO 2.37 K/mm3 (0.84-5.20); LYMPHOCYTES PERCENT AUTO 20 % (21-46); MONOCYTES ABSOLUTE AUTO 0.89 K/mm3 (0.16-1.47); MONOCYTES PERCENT AUTO 8 % (4-13); Mean Corpuscular HGB 15.8 pg (26.0-34.0); Mean Corpuscular HGB Conc 25.8 g/dL (31.5-36.5); Mean Corpuscular Volume 61 fL (80-100); NEUTROPHILS ABSOLUTE AUTO 8.26 K/mm3 (1.96-9.15); NEUTROPHILS PERCENT AUTO 70 % (41-73); NRBC ABSOLUTE 0.02 K/mm3 (0.00-0.02); NRBC Auto 0.2 /100 WBC (0.0-0.2); Platelet Count 232 K/mm3 (150-400); RDW Coefficient Variation 22.5 % (11.7-14.2); RDW Standard Deviation 45.7 fL (35.1-46.3); Red Blood Cell Count 4.62 M/mm3 (4.30-5.90); White Blood Cell Count 11.83 K/mm3 (4.00-11.30)
[2023-06-26 17:27] LABS: Albumin, Blood 3.5 g/dL (3.4-5.0); Bilirubin, Total 0.6 mg/dL (0.1-1.0); Bun/Creatinine Ratio 19.2 (12.0-20.0); Calcium, Blood 8.5 mg/dL (8.5-10.1); Creatinine, Blood 0.94 mg/dL (0.60-1.20); Globulin, Blood 3.5 g/dL (2.2-4.0); Potassium, Blood 4.5 mmol/L (3.5-5.5)
[2023-06-26 18:47] LABS: IMMATURE RETIC FRACTION 23.3 % (2.3-16.0); RETIC HGB EQUIVALENT 14.3 pg (28.20-36.60); RETICULOCYTE ABSOLUTE 0.0796 M/mm3 (0.0200-0.1100); RETICULOCYTE COUNT PERCENT 1.7 % (0.50-2.50)
[2023-06-26 18:56] LABS: Percent Saturation 4.2 % (20.0-50.0)
[2023-06-26] MEDS ORDERED: Ferrous Sulfat325 MG PO (19:14)
[2023-06-26 19:50] VITALS: BP 137/84
== END 2023-06-26 20:00 | disposition home or self-care (01) ==
LOC: ER 15:35
PROVIDERS: Emergency Medicine; Physician Assistant
DX: D50.9 Iron deficiency anemia, unspecified (principal); E11.40 Type 2 diabetes mellitus with diabetic neuropathy, unspecified; I10 Essential (primary) hypertension; I73.9 Peripheral vascular disease, unspecified; E78.5 Hyperlipidemia, unspecified; Z86.73 Personal history of transient ischemic attack (TIA), and cerebral infarction without residual deficits; Z95.9 Presence of cardiac and vascular implant and graft, unspecified; Z86.79 Personal history of other diseases of the circulatory system; Z79.02 Long term (current) use of antithrombotics/antiplatelets; Z79.01 Long term (current) use of anticoagulants; Z79.899 Other long term (current) drug therapy; E11.65 Type 2 diabetes mellitus with hyperglycemia
CPT/HCPCS: 36415; 80053; 81001; 82043; 82570; 82728; 83540; 83550; 84443; 85025; 85045; 86850; 86900; 86901; 93005; 93010; 99285-25; A9270; J2916

== ENCOUNTER 2023-07-08 16:14 | Emergency (ER) | payer MEDICARE, OTHER ==
[~2023-07-08] VITALS: Ht 185.4 cm; Wt 99.8 kg
[~2023-07-08 16:14] MED LIST changes: +Ferrous Sulfat325 MG PO
[2023-07-08 17:17] LABS: BASOPHILS ABSOLUTE AUTO 0.06 K/mm3 (0.00-0.23); BASOPHILS PERCENT AUTO 1 % (0-2); EOSINOPHILS ABSOLUTE AUTO 0.16 K/mm3 (0.00-0.68); EOSINOPHILS PERCENT AUTO 2 % (0-6); Hematocrit 34.4 % (37.0-53.0); Hemoglobin 8.7 g/dL (13.5-17.5); IMMATURE GRAN ABSOLUTE AUTO 0.04 K/mm3 (0.00-0.10); IMMATURE GRAN PERCENT AUTO 0 % (0-1); LYMPHOCYTES ABSOLUTE AUTO 2.01 K/mm3 (0.84-5.20); LYMPHOCYTES PERCENT AUTO 19 % (21-46); MONOCYTES ABSOLUTE AUTO 0.78 K/mm3 (0.16-1.47); MONOCYTES PERCENT AUTO 7 % (4-13); Mean Corpuscular HGB 16.5 pg (26.0-34.0); Mean Corpuscular HGB Conc 25.3 g/dL (31.5-36.5); Mean Corpuscular Volume 65 fL (80-100); NEUTROPHILS PERCENT AUTO 72 % (41-73); NRBC ABSOLUTE 0.02 K/mm3 (0.00-0.02); NRBC Auto 0.2 /100 WBC (0.0-0.2); Platelet Count 220 K/mm3 (150-400); RDW Standard Deviation 62.1 fL (35.1-46.3); Red Blood Cell Count 5.26 M/mm3 (4.30-5.90); White Blood Cell Count 10.85 K/mm3 (4.00-11.30)
[2023-07-08 17:26] LABS: Albumin, Blood 3.6 g/dL (3.4-5.0); Bilirubin, Total 1.3 mg/dL (0.1-1.0); Bun/Creatinine Ratio 16.7 (12.0-20.0); Calcium, Blood 8.8 mg/dL (8.5-10.1); Creatinine, Blood 0.84 mg/dL (0.60-1.20); Globulin, Blood 3.5 g/dL (2.2-4.0); Potassium, Blood 4.1 mmol/L (3.5-5.5); Total Protein, Blood 7.1 g/dL (6.4-8.2)
[2023-07-09 10:42] VITALS: BP 157/69
== END 2023-07-09 12:11 | disposition home or self-care (01) ==
LOC: ER 16:14
PROVIDERS: Student in an Organized Health Care Education/Training Program
DX: D64.9 Anemia, unspecified (principal); Z87.891 Personal history of nicotine dependence
CPT/HCPCS: 80053; 85025; 93005; 93010; 99284-25

== ENCOUNTER → 2023-08-05 | Outpatient (CLI) | payer MEDICARE, OTHER ==
[2023-08-06 13:39] LABS: Creatinine Urine 84.2 mg/dL (27.00-270.00); Protein, Urine Quantitative 32.4 mg/dL (0.0-11.9)
== END | disposition home or self-care (01) ==
LOC: LAB SHORT 02:14 → LAB 02:14
PROVIDERS: Internal Medicine Nephrology
DX: N18.30 Chronic kidney disease, stage 3 unspecified (principal); D63.1 Anemia in chronic kidney disease
CPT/HCPCS: 81050; 82043; 82570; 84156

== ENCOUNTER 2024-04-05 11:36 | Emergency (ER) | payer MEDICARE, OTHER ==
[~2024-04-05] VITALS: Ht 182.9 cm; Wt 106.6 kg
[2024-04-05 12:45] VITALS: BP 133/71
[2024-04-05 13:47] LABS: BASOPHILS ABSOLUTE AUTO 0.03 K/mm3 (0.00-0.23); BASOPHILS PERCENT AUTO 0 % (0-2); EOSINOPHILS ABSOLUTE AUTO 0.04 K/mm3 (0.00-0.68); EOSINOPHILS PERCENT AUTO 0 % (0-6); Hematocrit 46.4 % (37.0-53.0); Hemoglobin 15.1 g/dL (13.5-17.5); IMMATURE GRAN ABSOLUTE AUTO 0.13 K/mm3 (0.00-0.10); IMMATURE GRAN PERCENT AUTO 1 % (0-1); LYMPHOCYTES ABSOLUTE AUTO 1.67 K/mm3 (0.84-5.20); LYMPHOCYTES PERCENT AUTO 9 % (21-46); MONOCYTES ABSOLUTE AUTO 1.41 K/mm3 (0.16-1.47); MONOCYTES PERCENT AUTO 8 % (4-13); Mean Corpuscular HGB 27.9 pg (26.0-34.0); Mean Corpuscular HGB Conc 32.5 g/dL (31.5-36.5); Mean Corpuscular Volume 86 fL (80-100); NEUTROPHILS ABSOLUTE AUTO 14.47 K/mm3 (1.96-9.15); NEUTROPHILS PERCENT AUTO 82 % (41-73); Platelet Count 113 K/mm3 (150-400); RDW Coefficient Variation 14.7 % (11.7-14.2); RDW Standard Deviation 47.1 fL (35.1-46.3); Red Blood Cell Count 5.41 M/mm3 (4.30-5.90); White Blood Cell Count 17.75 K/mm3 (4.00-11.30)
[2024-04-05 14:18] LABS: Bun/Creatinine Ratio 17.3 (12.0-20.0); Calcium, Blood 8.7 mg/dL (8.5-10.1); Creatinine, Blood 1.1 mg/dL (0.60-1.20); Potassium, Blood 3.4 mmol/L (3.5-5.5)
[2024-04-05 14:46] LABS: Influenza A, PCR NEGATIVE (NEGATIVE); Influenza B, PCR NEGATIVE (NEGATIVE); Resp Syncytial Virus, PCR NEGATIVE (NEGATIVE); SARS-Cov-2 (COVID-19) PCR, MMC NEGATIVE (NEGATIVE)
[2024-04-05 14:50] LABS: Source, Urine Clean Catch
[2024-04-05 15:13] LABS: Appearance, Urine Clear (Clear); Bilirubin, Urine Neg (Neg); Blood, Urine 1+ (Neg); Color, Urine Yellow (P-Yellow); Glucose Qualitative, Urine 4+ (Neg); Ketones, Urine Neg (Neg); Leukocyte Esterase, Urine Neg (Neg); Nitrite, Urine Neg (Neg); Protein, Urine 2+ (Neg); Specific Gravity, Urine 1.015 (1.003-1.022); Urobilinogen, Urine 1+ (Normal)
[2024-04-05 15:26] LABS: Red Blood Cells, Urine 0-2 /hpf (0-2); White Blood Cells, Urine 0-2 /hpf (0-5)
[2024-04-05 15:27] LABS: Bacteria Rare /hpf; Squamous Epithelial Cells Not Seen /hpf (Few)
== END 2024-04-05 17:22 | disposition home or self-care (01) ==
LOC: ER 11:36
PROVIDERS: Student in an Organized Health Care Education/Training Program
DX: R53.1 Weakness (principal); D69.6 Thrombocytopenia, unspecified; D72.829 Elevated white blood cell count, unspecified; E11.40 Type 2 diabetes mellitus with diabetic neuropathy, unspecified; I10 Essential (primary) hypertension; E78.00 Pure hypercholesterolemia, unspecified; Z87.891 Personal history of nicotine dependence; Z91.81 History of falling; Z79.4 Long term (current) use of insulin; Z79.01 Long term (current) use of anticoagulants; Z79.84 Long term (current) use of oral hypoglycemic drugs; Z79.899 Other long term (current) drug therapy; Z74.01 Bed confinement status
CPT/HCPCS: 0241U; 70450; 71045; 72125; 80048; 81001; 85025; 93005; 93010; 99285-25

== ENCOUNTER 2024-04-08 14:44 | Inpatient (IN) | payer MEDICARE, OTHER ==
[~2024-04-08] VITALS: Ht 182.9 cm; Wt 104.0 kg
[~2024-04-08 14:44] MED LIST changes: +EPINEPhrine HCl 0.1 MG/ML STE Water 10ML SYR IV ONE; +EpiNEPhrine 1 MG/1 ML 1ML Vial IV ONE; +Magnesium Sulfate 500 MG / ML 2ML Vial IV ONE
[2024-04-08 16:51] LABS: BASOPHILS PERCENT AUTO 0 % (0-2); EOSINOPHILS ABSOLUTE AUTO 0.11 K/mm3 (0.00-0.68); EOSINOPHILS PERCENT AUTO 0 % (0-6); Hematocrit 46.4 % (37.0-53.0); Hemoglobin 15.6 g/dL (13.5-17.5); IMMATURE GRAN ABSOLUTE AUTO 0.72 K/mm3 (0.00-0.10); IMMATURE GRAN PERCENT AUTO 2 % (0-1); LYMPHOCYTES ABSOLUTE AUTO 1.62 K/mm3 (0.84-5.20); LYMPHOCYTES PERCENT AUTO 4 % (21-46); MONOCYTES ABSOLUTE AUTO 1.67 K/mm3 (0.16-1.47); MONOCYTES PERCENT AUTO 4 % (4-13); Mean Corpuscular HGB 28.1 pg (26.0-34.0); Mean Corpuscular HGB Conc 33.6 g/dL (31.5-36.5); Mean Corpuscular Volume 84 fL (80-100); NEUTROPHILS ABSOLUTE AUTO 35.62 K/mm3 (1.96-9.15); NEUTROPHILS PERCENT AUTO 89 % (41-73); Platelet Count 114 K/mm3 (150-400); RDW Standard Deviation 45.8 fL (35.1-46.3); Red Blood Cell Count 5.55 M/mm3 (4.30-5.90); White Blood Cell Count 39.84 K/mm3 (4.00-11.30)
[2024-04-08 17:03] LABS: Bun/Creatinine Ratio 12.9 (12.0-20.0); Calcium, Blood 6.9 mg/dL (8.5-10.1); Creatinine, Blood 1.55 mg/dL (0.60-1.20); Potassium, Blood 3.3 mmol/L (3.5-5.5)
[2024-04-08] MEDS ORDERED: CefTRIAXone Sodium 1,000 MG in NS 100 ML IV ONE (17:25)
[2024-04-08] MEDS ORDERED: NS 1,000 ML IV SCH ×2 (17:25→19:20)
[2024-04-08] MEDS ORDERED: Rocuronium Bromide 10 MG/ML 5ML Injection IV ONE (17:48)
[2024-04-08 18:15] LABS: Source, Urine Clean Catch
[2024-04-08 18:20] LABS: Appearance, Urine Clear (Clear); Blood, Urine 1+ (Neg); Color, Urine Amber (P-Yellow); Glucose Qualitative, Urine 4+ (Neg); Ketones, Urine Neg (Neg); Leukocyte Esterase, Urine 1+ (Neg); Nitrite, Urine Neg (Neg); Protein, Urine 2+ (Neg); Specific Gravity, Urine 1.015 (1.003-1.022); Urobilinogen, Urine 3+ (Normal)
[2024-04-08 18:28] LABS: Bilirubin, Urine 1+ (Neg)
[2024-04-08 18:32] LABS: U Amphetamine Screen Not Detected; U Barbituate Screen Not Detected; U Benzodiazapine Screen Not Detected; U Buprenorphine Screen Not Detected; U Cannabinoids Screen Not Detected; U Cocaine Screen Not Detected; U Methadone Screen Not Detected; U Methamphetamine Screen Not Detected; U Opiates Screen Not Detected; U Oxycodone Screen Not Detected; U Phencyclidine Screen Not Detected
[2024-04-08 18:35] LABS: Bacteria Many /hpf; Squamous Epithelial Cells Rare /hpf (Few); Yeast/Fungi Urine Few /hpf
[2024-04-08] MEDS ORDERED: FLU VACC TS2024-25(6MOS UP)/PF 45 MCG/0.5 ML SYRINGE IM SCH (19:15)
[2024-04-08] MEDS ORDERED: Ondansetron HCl 2 MG / ML 2ML Vial IV PRN (19:20)
[2024-04-08] MEDS ORDERED: Potassium Chloride 20 MEQ TabCR PO ONE (20:00)
[2024-04-08 20:17] LABS: Base Excess Venous 4.6 mmol/L; PCO2 Venous 44.4 mmHg (38-42); pH Blood Venous 7.42 (7.34-7.37)
[2024-04-08 20:23] LABS: Influenza A, PCR NEGATIVE (NEGATIVE); Influenza B, PCR NEGATIVE (NEGATIVE); Resp Syncytial Virus, PCR NEGATIVE (NEGATIVE); SARS-Cov-2 (COVID-19) PCR, MMC NEGATIVE (NEGATIVE)
[2024-04-08] MEDS ORDERED: Apixaban 5 MG Tab PO SCH (21:00)
[2024-04-08] MEDS ORDERED: Insulin Glargine-Yfgn 100 Unit/mL 3 ML SYR SC SCH (21:00)
[2024-04-08] MEDS ORDERED: ESCI10 PO (21:32)
[2024-04-08 21:41] VITALS: BP 101/85
[2024-04-08] MEDS ORDERED: CefTRIAXone Sodium 1,000 MG in NS 100 ML IV SCH (23:09)
[2024-04-09] MEDS ORDERED: Insulin Human Lispro 100 Units/ML 3ML Syringe SC SCH
--- NOTE | 2024-04-09 02:51 | NUR ---
ADMIT NOTE LATE ENTRY FROM 2124 PT WAS ADMITTED TO NM AT 2124 FROM THE ER. REPORT WAS CALLED TO ME AND PT WAS BROUGHT DOWN ON THE [facility]. HE WAS ABLE TO TRANSFER ONTO THE BED FROM THE [facility]. PT WAS ALERT ORIENTED TO SELF AND PLACE OM ADMIT. HE WAS PLACED ON TELEMETRY WHERE HE WAS PACED WITH A RATE OF 71. HE WAS PLACED ON 2 L OF O2 VIA NC AND A CONTINUOUS PULSE OX. HE WAS SATTING 95% ON 2 L. VS WERE STABLE AT THE TIME. PLACED CALL TO PTS AND GOT ADMIT INFORMATION FROM HER AND HE WAS ABLE TO SPEAK TO HER ON THE PHONE. HE WAS TOLERATING HIS PO INTAKE. HE WAS STARTED ON IV FLUIDS AT 100ML/HR. FS WAS 262 AT 0000 HUMALOG COVERAGE 3 UNITS WAS GIVEN. ABLE TO TAKE PO MEDS WITH FLUIDS.
--- NOTE | 2024-04-09 03:44 | NUR ---
AT 0050 I WENT INTO THE PTS ROOM AND HE WAS DIAPHORETIC AND CLAMMY. HIS COLOR WAS MARTINS AND HE WAS HAVING A HARD TIME RESPONDING WHEN SPOKEN TO. HE WAS TRYING TO SPEAK TO ME WHEN I ASKED HIM HOW HE WAS DOING BUT COULDNT SPEAK ANY WORDS. HE WAS ON A CONTINUOUS PULSE OX AND THE O2 SAT WAS GOING DOWN FROM 95% TO 82. I GOT ANOTHER NURSE TO COME IN WITH ME AND WE CALLED A RAPID RESPONSE. RAPID RESPONSE WAS CALLED AT 0055. RAPID RESPONSE TEAM CAME IN AND ASSESSED THE PT. PT STARTING GASPING AND WAS HAVING AGONAL BREATHING.NO PULSE COULD BE FOUND. CPR WAS CALLED AT 0056 AND CPR WAS STARTED. DR. CARO AND JANAE WERE IN WITH THE PT. BLOOD SUGAR WAS 296 AT 0056. FOUR ROUNDS OF CPR WERE DONE WITH 3 DOSES OF EPI,2 DOSES OF BICARB, ROCURONIUMAND MAG SULFATE. HE WAS INTUBATED AT 0108. AFTER THE FOUR ROUNDS OF CPR THE PT WAS PRONOUNCED BY THE MD AT 0110. i CALLED THE PTS MARIA ALEJANDRA AND INFORMED HER OF THE PTS . POST MORTEM CARE WAS DONE. THE CHARGE NURSE CALLED THE MORTUARY AND THEY ARRIVED TO PACKAGING SALES THE BODY AT 0341. PTS BELONGINGS WERE SENT WITH THE MORTUARY.
[2024-04-09] MEDS ORDERED: Pantoprazole Sodium 40 MG Tab PO SCH (06:00)
[2024-04-09] MEDS ORDERED: Clopidogrel Bisulfate 75 MG Tab PO SCH (09:00)
[2024-04-09] MEDS ORDERED: Atorvastatin 40 MG Tab PO SCH (09:00)
== END 2024-04-09 01:10 | DRG 683 ==
LOC: ER 14:44 → ERHOLD 19:13 → MEDS 21:15
PROVIDERS: Nurse Practitioner Acute Care; Student in an Organized Health Care Education/Training Program; ADMIT Student in an Organized Health Care Education/Training Program
PROC: 3E03329 Introduction of Other Anti-infective into Peripheral Vein, Percutaneous Approach (ICD-10-PCS; principal; 2024-04-08)
PROC: 5A12012 Performance of Cardiac Output, Single, Manual (ICD-10-PCS; 2024-04-09)
PROC: 3E033XZ Introduction of Vasopressor into Peripheral Vein, Percutaneous Approach (ICD-10-PCS; 2024-04-09)
PROC: 0BH17EZ Insertion of Endotracheal Airway into Trachea, Via Natural or Artificial Opening (ICD-10-PCS; 2024-04-09)
PROC: 5A1935Z Respiratory Ventilation, Less than 24 Consecutive Hours (ICD-10-PCS; 2024-04-09)
PROC: 0DH67UZ Insertion of Feeding Device into Stomach, Via Natural or Artificial Opening (ICD-10-PCS; 2024-04-09)
DX: N17.9 Acute kidney failure, unspecified (principal); E87.20 Acidosis, unspecified; I50.32 Chronic diastolic (congestive) heart failure; N39.0 Urinary tract infection, site not specified; I11.0 Hypertensive heart disease with heart failure; E86.0 Dehydration; E87.6 Hypokalemia; D50.9 Iron deficiency anemia, unspecified; E11.51 Type 2 diabetes mellitus with diabetic peripheral angiopathy without gangrene; I35.0 Nonrheumatic aortic (valve) stenosis; K21.9 Gastro-esophageal reflux disease without esophagitis; E11.40 Type 2 diabetes mellitus with diabetic neuropathy, unspecified; E78.5 Hyperlipidemia, unspecified; I71.40 Abdominal aortic aneurysm, without rupture, unspecified; C69.90 Malignant neoplasm of unspecified site of unspecified eye; I44.0 Atrioventricular block, first degree; Z86.718 Personal history of other venous thrombosis and embolism; Z86.73 Personal history of transient ischemic attack (TIA), and cerebral infarction without residual deficits; Z79.4 Long term (current) use of insulin; Z79.01 Long term (current) use of anticoagulants; Z79.02 Long term (current) use of antithrombotics/antiplatelets; Z79.899 Other long term (current) drug therapy; Z79.84 Long term (current) use of oral hypoglycemic drugs; Z98.890 Other specified postprocedural states
CPT/HCPCS: 0241U; 31500; 36415; 80048; 80320; 81001; 82550; 82803; 82947; 83605; 83880; 84145; 85025; 87040; 87077; 87086; 87186; 92950; 93005; 93010; 94002; 94762; 96360; 99285-25; A9270; J0171; J0696; J1815; J3475; J7030